=== PATIENT | female | born 1945 | race Caucasian/White ===

== ENCOUNTER 2019-12-07 00:38 | Outpatient (CLI) | payer MEDICARE, SELFPAY ==
[2019-12-07 16:40] LABS: SARS-CoV-2 RNA PCR Negative
== END 2019-12-07 00:39 | disposition home or self-care (01) ==
LOC: ANHCOVIDDT 00:38
PROVIDERS: PCP Internal Medicine; Visit Provider Podiatrist Foot & Ankle Surgery
DX: Z01.812 Encounter for preprocedural laboratory examination (principal); Z20.828 Contact with and (suspected) exposure to other viral communicable diseases
CPT/HCPCS: 87635; C9803; U0003

== ENCOUNTER 2019-12-07 08:59 | Outpatient (CLI) | payer MEDICARE, SELFPAY ==
--- NOTE | 2019-12-07 09:13 | ECG_ITS ---
Measurements Intervals Busy Rate: 53 P: 54 IA: 137 QRS: 22 QRSD: 86 T: 6 QT: 416 QTc: 392 Interpretive Statements SINUS BRADYCARDIA BORDERLINE ST-T WAVE ABNORMALITY- ANT/INF LEADS BORDERLINE ECG Electronically Signed On 12-07-2019 11:05:54 CDT by Harpreet Gaspar D.O.
== END 2019-12-07 09:00 | disposition home or self-care (01) ==
PROVIDERS: PCP Internal Medicine; Visit Provider Anesthesiology
DX: R00.1 Bradycardia, unspecified (principal); E78.00 Pure hypercholesterolemia, unspecified
CPT/HCPCS: 93005

== ENCOUNTER 2019-12-10 00:27 | Day surgery (SDC) | payer MEDICARE, SELFPAY ==
[2019-12-04 13:42] VITALS: BMI 20.5
[2019-12-10 11:51] VITALS: BP 147/67; PULSE 60; RESP 20; TEMP 36.6; O2SAT 100
[2019-12-10] MEDS: LACTATED RINGERS 1,000 ML 30 ML IV CONT (12:00)
--- NOTE | 2019-12-10 12:44 | P.PNAN_ITS ---
Anes - Initial Pre Proc Eval Procedure: Operation Date: 12/10/19 13:30 Proposed Procedures p Roberto Bunionectomy Right Foot - Hernan Bello DPM Date/Time: 12/10/19 12:44 Surgeon: Hernan Bello DPM Pre Op Diagnosis: HALLUX VALGUS RIGHT FOOT Patient Data Age: 74 Gender: F Height: 5 ft 2.5 in Weight: 51.5 kg Last Vital Signs Temp 36.6 C 12/10/19 11:51 Pulse 60 12/10/19 11:51 Resp 20 12/10/19 11:51 BP 147/67 H 12/10/19 11:51 Pulse Ox 100 12/10/19 11:51 Allergies Allergy/AdvReac Type Severity Reaction Status Date / Time No Known Allergies Allergy Verified 12/10/19 11:48 Home Medications Medication Instructions Recorded Confirmed Type aspirin 81 mg PO DAILY 12/04/19 12/04/19 History cholecalciferol (vitamin D3) 100 mcg PO DAILY 12/04/19 12/04/19 History [Vitamin D3] levothyroxine 50 mcg PO DAILY 12/04/19 12/10/19 History rosuvastatin 10 mg PO QMWFSU 12/04/19 12/10/19 History silver sulfadiazine 1 applic TOPICAL BID 12/04/19 12/10/19 History Patient hx anesthesia problems: none Family hx anesthesia problems: none [facility] Past Medical History Medical History (Updated 12/10/19 @ 12:47 by Brennan Spangler MD) Hyperlipidemia MVP (mitral valve prolapse) Surgical History Surgical History (Updated 12/10/19 @ 12:48 by Brennan Spangler MD) H/O: hysterectomy History of shoulder surgery Social History Social History (Updated 12/10/19 @ 12:48 by Brennan Spangler MD) Smoking status: Never smoker Gender identity (if verbalized by the patient): Female Anes - Eval Final PreProcedure Day of Procedure 12/10/19 12:44 Patient weight: normal Heart: regular rate and rhythm Lungs: clear to auscultation Airway: Mallampati scale class II Neurological: alert and oriented Last oral intake: >/= 8 hours ASA classification: II Emergent: no Anesthetic plan: proceed Anesthesia type and monitoring: general GIVS and standard monitoring Informed Consent: The patient's anesthetic plan and its attendant risks and benefits were discussed with the patient/family/POA. Questions were solicited and answers provided to the satisfaction of the patient/family/POA.
--- NOTE | 2019-12-10 13:50 | WPDHPUPDATE1 ---
History and Physical Update Update Date/Time: 12/10/19 13:50 History and Physical has been reviewed, including an updated exam of the patient. There are NO changes in the patient's condition. Risks, benefits, and alternatives have been discussed and questions answered. Patient agrees to proceed with procedure.
[2019-12-10] MEDS: LIDOCAINE HCL 2% LOCAL INJ 20 ML VIAL INFILTRATE (14:18)
[2019-12-10 14:43] VITALS: BP 106/59; PULSE 64; RESP 14; O2SAT 97
[2019-12-10 15:13] VITALS: BP 119/58; PULSE 57; RESP 14
[2019-12-10 15:43] VITALS: BP 115/75; PULSE 52; RESP 14
--- NOTE | 2020-01-14 17:20 | OP_ITS ---
DATE OF PROCEDURE: 12/10/2019 SURGEON: Hernan Bello D.P.M. SHOE SPRAYER: None. PREOPERATIVE DIAGNOSIS: Hallux valgus, right foot. POSTOPERATIVE DIAGNOSIS: Hallux valgus, right foot. PROCEDURE: Roberto bunionectomy, right foot. ANESTHESIA: Monitored anesthesia care with 0.5% Sensorcaine and 2.0% Xylocaine plain. HEMOSTASIS: via pneumatic tourniquet, right ankle at 250 mmHg. DESCRIPTION OF PROCEDURE: The patient was brought to the operating room and placed in the supine position upon the surgical table, the aforementioned local anesthetic agents were given followed by sterile prep and wrap in usual fashion. After ascertaining adequate anesthesia had been obtained and when the pneumatic tourniquet inflated about the right ankle, a dorsi-linear incision centered over the first MTP just medial to the long extensor tendon approximately 6 cm in length was created. The incision was deepened in the same plane with careful attention paid towards bleeders, which were either clamped, bovied, or ligated as necessary. Next, a periosteal capsular incision paralleling the original skin incision was created and all periosteal capsular and collateral ligament tissues were freed from about the head of the first metatarsal, which revealed a hypertrophy medial eminence, which was resected flush utilizing an oscillating saw. Next, an Roberto bunionectomy was performed, which is a V-shaped osteotomy in the transverse plane with the apex distally. The capital fragment was then displaced distally, moved laterally and then re-impacted upon the first metatarsal, the shaft thus reducing the metatarsus primus adductus angle. The osteotomy site was stable, but it was further stabilized with a single 0.045-inch K-wire. In the remaining bony spicules were rasped free and the wound was flushed copious amounts of sterile saline. The periosteal capsular incision was closed with a continuous running suture of 3-0 Vicryl. The subcutaneous tissues were closed utilizing horizontal mattress fashion sutures of 4-0 Vicryl. The skin was closed with a continuous subcuticular suture of 5-0 Vicryl. The pneumatic tourniquet was then deflated about right ankle and normal capillary refill time and color returned to all digits of the right foot. The wounds were dressed with sterile Adaptic, sterile 4 x 4s, and sterile Jory in a compressive type fashion. The aforementioned procedures took place under sterile technique and at no time was a brake in our sterile field. The patient left the operating room with vital signs stable, vascular status intact, and in an apparent satisfactory postoperative condition. After a brief period of observation in the post-anesthesia room, the patient was discharged to home with the following instructions: 1. Limit activity to bathroom privileges only. 2. Keep the dressing clean, dry, and intact. 3. Resume regular home diet and home medications. Call Dr. Bello at [phone] or [phone] if any questions, problems, or emergencies arise whatsoever, and also to schedule followup examination as soon as possible. Lali I MT: Selena
== END 2019-12-10 16:00 | disposition home or self-care (01) ==
PROVIDERS: PCP Internal Medicine; Visit Provider Podiatrist Foot & Ankle Surgery
PROC: (CPT 28299; principal; 2019-12-10 13:30)
DX: M20.11 Hallux valgus (acquired), right foot (principal); E78.5 Hyperlipidemia, unspecified; I34.1 Nonrheumatic mitral (valve) prolapse; Z79.82 Long term (current) use of aspirin
CPT/HCPCS: 28296; 87635; 93005; C1713; C9803; J1100; J2250; J2405; J2704; J3010; J7120; U0003

== ENCOUNTER 2024-12-04 09:25 | Inpatient (IN) | payer MEDICARE, SELFPAY ==
[2024-12-04] VITALS (33 sets, daily range): BP systolic 131–184; BP diastolic 64–88; PULSE 52–66; RESP 16–20; TEMP 36.2–36.4; O2SAT 94–100; BMI 21.6
--- OUTSIDE RECORDS SUMMARY | 2024-12-04 09:33 | XMS_ITS | Referral Summary ---
Author Organization [facility] Address [address] [place] [address] Care Team Providers Care Clinical Research Physician Name Role Phone Elissa Edmonds Primary Care Provider [phone] Encounters Date Type Department Care Team Description 11/13/2024 9:30 AM CDT Office Visit [facility] Cardiology [address] [place] [address] Medical Office Building [address] [place] [address] Anthony Cochran MD Mitral valve disease (Primary Dx); Hyperlipidemia, unspecified hyperlipidemia type from Last 3 Months Allergies No known active allergies Medications aspirin 81 mg tablet daily. 9 Active ibuprofen (ADVIL,MOTRIN) 200 mg tab/cap PRN Activ e levothyroxine (SYNTHROID, LEVOTHROID) 50 mcg tablet daily. 0 Active psyllium husk 3.4 gram/5.4 gram powder Take by mouth. Active cholecalciferol (VITAMIN D-3) 2,000 unit tablet 1 daily Active tretinoin (RETIN-A) 0.05 % cream APPLY CREAM TOPICALLY AT BEDTIME TO FACE 3 9 Active nitroglycerin (NITROSTAT) 0.[address] 1 tablet (0.4 mg total) under the tongue every 5 (five) minutes as needed for chest pain May repeat dose q 5 min, up to 3 doses total 100 tablet 11 3 Active Premarin vaginal cream APPLY 1/2 GRAM THREE TIMES WEEKLY 4 Active cyanocobalamin, vitamin B-12, (VITAMIN B-12 ORAL) Take by mouth daily Active rosuvastatin (CRESTOR) 20 mg tablet Take 1 tablet (20 mg total) by mouth daily 90 tablet 3 Active estradioL (ESTRACE) 0.01 % (0.1 mg/gram) vaginal cream Insert into the vagina. 11/14/19 25 Discontinu ed(Therapy completed) ubidecarenone (COENZYME Q10 ORAL) Take by mouth daily 11/14/19 Discontinu ed(Therapy completed) Hospital, Clinic, or Other Facility Administered Medication Ordered Dose Route Frequency Start Date End Date Status perflutren protein-a (OPTISON) 3 mL in sodium chloride 0.9% 8 mL syringe 1 - 8 mL IV Once in imaging 11/02/2023 Active Active Problems Problem Noted Date Diagnosed Date Dizziness 04/09/2015 Pain of foot 12/03/2012 Cardiomyopathy 05/23/2012 Calf cramp 01/21/2011 Mitral valve disease 11/15/2010 Overview (10/13/2017): Description: Mitral Valve Disorder Hyperthyroidism 06/07/2010 Anemia 06/07/2010 Hypertension 06/07/2010 Hyperlipidemia 06/07/2010 Social History Tobacco Use Types Packs/Day Years Used Date Smoking Tobacco: Never Smokeless Tobacco: Never Tobacco Cessation:Counseling Given: Not Answered Comments Unknown Sex and Gender Information Value Date Recorded Sex Assigned at Not on file 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 Gender Identity Not on file Sexual Orientation Not on file Last Filed Vital Signs Vital Sign Reading Time Taken Comments Blood Pressure 136/76 11/13/2024 9:29 AM CDT Pulse 62 11/13/2024 9:29 AM CDT Temperature - - Respiratory Rate 20 11/03/2022 9:41 AM CDT Oxygen Saturation 98% 11/13/2024 9:29 AM CDT Inhaled Oxygen Concentration - - Weight 51.3 kg (113 lb) 11/13/2024 9:29 AM CDT Height 158.8 cm (5' 2.5) 11/13/2024 9:29 AM CDT Body Mass Index 20.34 11/13/2024 9:29 AM CDT Plan of Treatment Not on file Insurance [employer] MEDICARE GOLD AETNA MEDICARE GOLD MEDICARE [facility] MEDICARE GOLD Care Teams Clinical Research Physician Relationship Specialty Start Date End Date Elissa Edmonds PA [address] [place] [id number] PCP - General Physician Construction Secretary 11/02/23
--- OUTSIDE RECORDS SUMMARY | 2024-12-04 09:33 | XMS_ITS | Encounter Summary ---
Author Organization [facility] Address [address] [place] [address] Care Team Providers Care Appliance Repair Technician Name Role Phone Reece Rahman MD Primary Care Provider [phone] Encounter Details Date Type Department Care Team (Late st Contact Info) Description 12/02/2019 Lab Requisition [facility] DermPath Lab 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 Gender Identity Not on file Sexual Orientation Not on file documented as of this encounter Plan of Treatment Not on file documented as of this encounter Procedures Procedure Name Priority Date/Time Associated Diagnosis Comments DERMATOPATHOLOGY Routine 11/28/2019 12:0 0 AM CDT documented in this encounter Results * DERMATOPATHOLOGY (11/28/2019 12:00 AM CDT) Case Report Dermatopathology Report Case: [id number] Authorizing Provider: Jacki Pino DO Collected: 11/28/2019 12:00 AM Ordering Location: [facility] DermPath Lab Received: 12/02/2019 11:13 AM Pathologist: Hollie Chávez MD Specimen: Skin, right thigh 0 2:56 PM CDT DERMATOPATHOLOGY LABORATORY Final Diagnosis Specimen A. SKIN, right thigh: PROMINENT BASILAR PIGMENTATION CONSISTENT WITH SOLAR LENTIGO (L81.4) (see microscopic description) 0 2:56 PM CDT DERMATOPATHOLOGY LABORATORY at 1456 CDT Clinical History Inflamed lentigo r/o atypia 0 2:56 PM CDT DERMATOPATHOLOGY LABORATORY Gross Description Specimen A: Received is one formalin filled container labeled with the patient's name and designated right thigh. The specimen consists of a shave biopsy measuring 10x5x1 mm. Jar 0. 0 2:56 PM CDT DERMATOPATHOLOGY LABORATORY Microscopic Description Specimen A. SKIN, right thigh: Sections show prominent pigmentation of the basal layer without a prominent increase in melanocytes. Some of the basilar keratinocytes are slightly enlarged but uniform. The rete ridges are not elongated. The number of melanocytes, highlighted by MART-1/Melan-A immunohistochemical staining, is only mildly increased. In the dermis, there is basophilic degeneration of elastic fibers. 0 2:56 PM CDT DERMATOPATHOLOGY LABORATORY Disclaimer An external and internal positive and negative controls are appropriate for the histochemical, immunohistochemical and immunofluorescence stain(s) in this case (if any), except where stated explicitly. The performance characteristics of the stain(s) cited in this report were developed and its performance characteristic determined by the Dermatopathology Laboratory at [facility], directed by Dr. Sally Yee. These tests need not be, and therefore are not, approved by the [place] Food and Drug Administration. The tests are used for clinical purposes. Billing Codes Specimen Charges Stain Charges 22642 1 41101 1 0 2:56 PM CDT DERMATOPATHOLOGY LABORATORY Embedded Images 0 2:56 PM CDT DERMATOPATHOLOGY LABORATORY Pathology/Cytolog y TISSUE SPECIMEN FROM SKIN / Unknown 11/28/2019 12/02/2019 11:13 AM CDT Jacki Pino DO LAB - PATHOLOGY/CYTOLOGY ORDERABLES Final Result DERMATOPATHOLOGY LABORATORY [facility] - Department of Dermatology [employer] [facility]/[address] [phone] documented in this encounter Visit Diagnoses Not on filedocumented in this encounter Care Teams Appliance Repair Technician Relationship Specialty Start Date End Date Reece Rahman MD [address] [place] [address] PCP - General 12/02/19 documented as of this encounter
--- OUTSIDE RECORDS SUMMARY | 2024-12-04 09:33 | XMS_ITS | Encounter Summary ---
Author Organization 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 Gender Identity Not on file Sexual Orientation Not on file documented as of this encounter Plan of Treatment Not on file documented as of this encounter Procedures Procedure Name Priority Date/Time Associated Diagnosis Comments GLUCOSE VITALITY Routine 04/16/2019 7:45 AM CDT HEMOGLOBIN A1C Routine 04/16/2019 7:45 AM CDT LIPID PROFILE Routine 04/16/2019 7:45 AM CDT documented in this encounter Results * HEMOGLOBIN A1C (04/16/2019 7:45 AM CDT) Hemoglobin A1c 6.2 4.4 - 6.3 % 04/16/2019 10:04 AM CDT [facility] Estimated Average Glucose 131 mg/dL 04/16/2019 10:04 AM [facility] Comment: HbA1c Interpretation: Treatment target values recommended by ADA and other clinical organizations should be used to evaluate metabolic control in patients. Treatment Target Values: Normal : < 5.7% Pre-diabetes: 5.7-6.4% Diabetes: Equal to or greater than 6.5% Reference: [place] Diabetes Association Standards of Care in Diabetes -2014 In patients 70 years and older consider HbA1c target range of 7.0-7.5% Reference: Diabetes Mellitus in Older People: Position Statement on behalf of the International Association of Gerontology and Geriatrics (IAGG), the Diabetes Working Republican for Older People (EDWPOP), and the International Task Force of Experts in Diabetes. Reinaldo Tellez et al. J [place] Medical Directors Association. 2012 Test results diagnostic of diabetes should be repeated for confirmation. The Sebia Capillary 2 assay for the measurement of HbA1c is a National Glycohemoglobin Standardization Program (NGSP)certified method. Blood BLOOD SPECIMEN / Unknown Lab Venipuncture / Unknown 04/16/2019 7:45 AM CDT 04/16/2019 9:20 AM CDT us LAB - CHEMISTRY ORDERABLES Final Result Performing Organization Address City/State/[facility] Co de Phone Number [address] [phone] * (ABNORMAL) LIPID PROFILE (04/16/2019 7:45 AM CDT) [facility] Signature Cholesterol Total 280(H) <200 mg/dL 04/16/2019 9:56 AM [facility] HDL 111 >40 mg/dL 04/16/2019 9:56 AM [facility] Comment: ATP III Classification of HDL Cholesterol: <40 mg/dL: Considered a major risk factor. >60 mg/dL: Considered a negative risk factor. LDL Calculated 155(H) <100 mg/dL 04/16/2019 9:56 AM [facility] Comment: ATP III Classification of LDL Cholesterol: <100 mg/dL: Optimal 100 - 129 mg/dL: Near Optimal/Above Optimal 130 - 159 mg/dL: Borderline High 160 - 189 mg/dL: High >190 mg/dL: Very High Triglycerides 68 <150 mg/dL 04/16/2019 9:56 AM CDT [facility] Comment: ATP III Classification of Triglycerides: <150 mg/dL: Normal 150 - 199 mg/dL: Borderline High 200 - 400 mg/dL: High >500 mg/dL: Very High Blood BLOOD SPECIMEN / Unknown Lab Venipuncture / Unknown 04/16/2019 7:45 AM CDT 04/16/2019 9:19 AM CDT us LAB - CHEMISTRY ORDERABLES Final Result [address] [phone] * GLUCOSE VITALITY (04/16/2019 7:45 AM CDT) Glucose 93 70 - 115 mg/dL 04/16/2019 9:46 AM CDT [facility] Blood BLOOD SPECIMEN / Unknown Lab Venipuncture / Unknown 04/16/2019 7:45 AM CDT 04/16/2019 9:19 AM CDT us LAB - CHEMISTRY ORDERABLES Final Result [address] [phone] documented in this encounter Visit Diagnoses Not on filedocumented in this encounter Care Teams Circuit Board Drafter Relationship Specialty Start Date End Date Reece Rahman MD [address] [place] [id number] PCP - General 12/02/19 documented as of this encounter
--- OUTSIDE RECORDS SUMMARY | 2024-12-04 09:33 | XMS_ITS | Clinical Summary ---
Author Organization [facility] Address [address] [place] [address] Care Team Providers Care Condenser Tester Name Role Phone Reece Rahman MD Primary Care Provider [phone] Source Comments [facility],non-owned Affiliates and Associated Physician Practices is amultiple site organization consisting of ambulatory clinics and hospital sitesin [place], [place], [place] and [place]. This disclosure is being madepursuant to the Care Everywhere program and may not contain all information available regarding this patient. Last updated 18.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 Gender Identity Not on file Sexual Orientation Not on file Plan of Treatment Health Maintenance Due Date Last Done Comments BONE DENSITY TESTING 1945 HEPATITIS C SCREENING 03/04/1965 DTAP/TDAP/TD VACCINES (1 - Tdap) 1966 PNEUMOCOCCAL VACCINE 50+ (1 of 1 - PCV) 1997 ZOSTER VACCINE (1 of 2) 1997 Respiratory Syncytial Virus (RSV) Vaccine Pt: or over 60 yrs (1 - 1-dose 75+ series) 2022 COVID-19 VACCINE (3 - 2023-2 5 season) 2024 08/12/2020, 07/22/2020 DEPRESSION SCREENING 07/03/2024 MEDICARE AWV CALENDAR YEAR 2024 INFLUENZA VACCINE (Season Ended) 2025 HEPATITIS B VACCINE Aged Out No longe r eligible based on patient's age to complete this topic HIB VACCINE Aged Out No longer eligi ble based on patient's age to complete this topic HPV VACCINE Aged Out No longer eligi ble based on patient's age to complete this topic MENINGOCOCCAL (Group B) VACCINE SHARED DECISION-MAKING Aged Out No longer eligible based on patient's age to complete this topic MENINGOCOCCAL GROUPS A/C/Y/W VACCINE Aged Out No longer eligible b ased on patient's age to complete this topic Insurance T AETNA MEDICARE ADV Care Teams Condenser Tester Relationship Specialty Start Date End Date Reece Rahman MD [address] [place] [address] [place] [id number] PCP - General 12/02/19
--- OUTSIDE RECORDS SUMMARY | 2024-12-04 09:33 | XMS_ITS | Encounter Summary ---
Author Organization [facility] Address [address] [place] [address] Care Team Providers Care Drawer Fitter Name Role Phone Enio Patten MD, Stacia Greenwood Primary Care Provider Cherelle vailable Encounter Details Date Type Department Care Team (Latest Contact Info) Description 08/12/[address] 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
--- OUTSIDE RECORDS SUMMARY | 2024-12-04 09:33 | XMS_ITS | Encounter Summary ---
Author Organization [facility] Address [address] [facility] [place] [address] Care Team Providers Care Automotive Hardware Engineer Name Role Phone Reece Rahman MD Primary Care Provider [phone] Encounter Details Date Type Department Care Team (Late st Contact Info) Description 03/14/2024 Lab Requisition [facility] - DermPath Lab [address] [facility], [facility] [place] [address] Jacki Pino DO [address] [address] Social History Tobacco Use Types Packs/Day Years Used Date Smoking Tobacco: Never Assessed Comments Unknown Sex and Gender Information Value Date Recorded Sex Assigned at Not on file 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 Gender Identity Not on file Sexual Orientation Not on file documented as of this encounter Plan of Treatment Not on file documented as of this encounter Procedures Procedure Name Priority Date/Time Associated Diagnosis Comments DERMATOPATHOLOGY Routine 03/14/2024 10:1 6 AM CDT documented in this encounter Results * DERMATOPATHOLOGY (03/14/2024 10:16 AM CDT) Case Report Dermatopathology Report Case: [id number] Authorizing Provider: Jacki Pino DO Collected: 03/14/2024 10:16 AM Ordering Location: [facility] - Received: 03/15/2024 09:04 AM DermPath Lab Pathologist: Lizbet Egan MD Specimen: Skin, left anterior LE 8:17 AM CDT DERMATOPATHOLOGY LABORATORY Final Diagnosis Specimen A. SKIN, left anterior LE: HYPERPLASTIC (HYPERTROPHIC) ACTINIC KERATOSIS; EXTENDING TO THE BASE OF THE SPECIMEN (L57.0) (see microscopic description and comment) 8:17 AM CDT DERMATOPATHOLOGY LABORATORY at 0817 CDT Clinical History R/O NMSC 4 8:17 AM CDT DERMATOPATHOLOGY LABORATORY Gross Description Specimen A: Received is one formalin filled container labeled with the patient's name and designated left anterior LE. The specimen consists of a shave biopsy measuring 5x5x1 mm. Jar 0. 8:17 AM CDT DERMATOPATHOLOGY LABORATORY Microscopic Description Specimen A. SKIN, left anterior LE: There is hyperkeratosis alternating with parakeratosis. There is epidermal hyperplasia with disorderly maturation of keratinocytes with nuclear pleomorphism confined to the lower half of the epidermis. This process extends to the base of the specimen. COMMENT: A squamous cell carcinoma cannot be ruled out. 8:17 AM CDT DERMATOPATHOLOGY LABORATORY Disclaimer An external and internal positive and negative controls are appropriate for the histochemical, immunohistochemical and immunofluorescence stain(s) in this case (if any), except where stated explicitly. The performance characteristics of the stain(s) cited in this report were developed and its performance characteristic determined by the Dermatopathology Laboratory at [facility], directed by Dr. Sally Yee. These tests need not be, and therefore are not, approved by the [place] Food and Drug Administration. The tests are used for clinical purposes. Billing Codes Specimen Charges Stain Charges 59107 1 4 8:17 AM CDT DERMATOPATHOLOGY LABORATORY Embedded Images 4 8:17 AM CDT DERMATOPATHOLOGY LABORATORY Pathology/Cytolo gy TISSUE SPECIMEN FROM SKIN / Unknown 03/14/2024 10:16 AM CDT 03/15/2024 9:04 AM CDT us Jacki Pino DO LAB - PATHOLOGY/CYTOLOGY ORDERABLES Final Result DERMATOPATHOLOGY LABORATORY [facility] - Department of Dermatology [facility] Medicine [address] [place] [address], [address] [phone] documented in this encounter Visit Diagnoses Not on filedocumented in this encounter Care Teams Automotive Hardware Engineer Relationship Specialty Start Date End Date Reece Rahman MD [address] [place] [phone] PCP - General 12/02/19 documented as of this encounter
--- OUTSIDE RECORDS SUMMARY | 2024-12-04 09:33 | XMS_ITS | Encounter Summary ---
Author Organization [facility] Address [address] [facility] [place] [address] Care Team Providers Care Rough And Trueing Machine Operator Name Role Phone Reece Rahman MD Primary Care Provider [phone] Encounter Details Date Type Department Care Team (Late st Contact Info) Description 04/05/[address] 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 Received: 04/07/2023 09:39 AM Pathologist: Hollie Chávez MD Specimen: Skin, right shoulder 4:57 PM CDT DERMATOPATHOLOGY LABORATORY Final Diagnosis Specimen A. SKIN, right shoulder: DERMAL SCAR RESIDUAL BASAL CELL CARCINOMA NOT IDENTIFIED (L90.5) 3 4:57 PM CDT DERMATOPATHOLOGY LABORATORY at 1657 CDT Clinical History BCC Bx Proven 3 4:57 PM CDT DERMATOPATHOLOGY LABORATORY Gross Description Specimen A: Received is one formalin filled container labeled with the patient's name and designated right shoulder. The specimen consists of a non-oriented ellipse of skin measuring 16a06h7 mm. The epidermal surface is unremarkable. The margin is inked green. The 12 o'clock and 6 o'clock tips are submitted in cassette 1. The remainder of the ellipse is serially sectioned and submitted in cassette 2-3. Jar 0. 4:57 PM CDT DERMATOPATHOLOGY LABORATORY Microscopic Description Specimen A. SKIN, right shoulder: There are fibroblasts and collagen bundles oriented parallel to the skin surface. There are elongated blood vessels, some of which are oriented perpendicular to the skin surface. No basal cell carcinoma is identified. 4:57 PM CDT DERMATOPATHOLOGY LABORATORY Disclaimer An external and internal positive and negative controls are appropriate for the histochemical, immunohistochemical and immunofluorescence stain(s) in this case (if any), except where stated explicitly. The performance characteristics of the stain(s) cited in this report were developed and its performance characteristic determined by the Dermatopathology Laboratory at [facility], directed by Dr. Sally Yee. These tests need not be, and therefore are not, approved by the [place] Food and Drug Administration. The tests are used for clinical purposes. Billing Codes Specimen Charges Stain Charges 60853 1 4:57 PM CDT DERMATOPATHOLOGY LABORATORY Embedded Images 4:57 PM CDT DERMATOPATHOLOGY LABORATORY Pathology/Cytolo gy TISSUE SPECIMEN FROM SKIN / Unknown 04/05/2023 2:01 PM CDT 04/07/2023 9:39 AM CDT us Jacki Pino DO LAB - PATHOLOGY/CYTOLOGY ORDERABLES Final Result DERMATOPATHOLOGY LABORATORY [facility] - Department of Dermatology [address], [address] [phone] documented in this encounter Visit Diagnoses Not on filedocumented in this encounter Care Teams Rough And Trueing Machine Operator Relationship Specialty Start Date End Date Reece Rahman MD [address] [place] [phone] PCP - General 12/02/19 documented as of this encounter
--- OUTSIDE RECORDS SUMMARY | 2024-12-04 09:33 | XMS_ITS | Encounter Summary ---
Author Organization [facility] Address [address] [facility] [place] [address] Care Team Providers Care Regulatory Product Manager Name Role Phone Reece Rahman MD Primary Care Provider [phone] Encounter Details Date Type Department Care Team (Late st Contact Info) Description 01/30/2023 Lab Requisition 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 DermPath Lab Received: 01/30/2023 04:16 PM Pathologist: Jessica Pace MD Specimen: Skin, right shoulder 3 5:44 PM CDT DERMATOPATHOLOGY LABORATORY Final Diagnosis Specimen A. SKIN, right shoulder: BASAL CELL CARCINOMA, SUPERFICIAL MULTIFOCAL (C44.612) 3 5:44 PM CDT DERMATOPATHOLOGY LABORATORY at 1744 CDT Clinical History NMSC 3 5:44 PM CDT DERMATOPATHOLOGY LABORATORY Gross Description Specimen A: Received is one formalin filled container labeled with the patient's name and designated right shoulder. The specimen consists of a shave biopsy measuring 7x6x1 mm. Jar 0. 3 5:44 PM CDT DERMATOPATHOLOGY LABORATORY Microscopic Description Specimen A. SKIN, right shoulder: Attached to the undersurface of the epidermis, there are small aggregates of basaloid cells with a high nuclear to cytoplasmic ratio and peripheral palisading. 3 5:44 PM CDT DERMATOPATHOLOGY LABORATORY Disclaimer An external and internal positive and negative controls are appropriate for the histochemical, immunohistochemical and immunofluorescence stain(s) in this case (if any), except where stated explicitly. The performance characteristics of the stain(s) cited in this report were developed and its performance characteristic determined by the Dermatopathology Laboratory at [facility], directed by Dr. Sally Yee. These tests need not be, and therefore are not, approved by the [place] Food and Drug Administration. The tests are used for clinical purposes. Billing Codes Specimen Charges Stain Charges 89685 1 3 5:44 PM CDT DERMATOPATHOLOGY LABORATORY Embedded Images 3 5:44 PM CDT DERMATOPATHOLOGY LABORATORY Pathology/Cytolo gy TISSUE SPECIMEN FROM SKIN / Unknown 01/30/2023 10:02 AM CDT 01/30/2023 4:16 PM CDT us Jacki Pino DO LAB - PATHOLOGY/CYTOLOGY ORDERABLES Final Result DERMATOPATHOLOGY LABORATORY [facility] - Department of Dermatology [address], [address] [phone] documented in this encounter Visit Diagnoses Not on filedocumented in this encounter Care Teams Regulatory Product Manager Relationship Specialty Start Date End Date Reece Rahman MD [address] [place] [id number] PCP - General 12/02/19 documented as of this encounter
--- OUTSIDE RECORDS SUMMARY | 2024-12-04 09:33 | XMS_ITS | Clinical Summary ---
Author Organization [facility] Address [address] [place] [address] Care Team Providers Care Road Worker Name Role Phone Elissa Edmonds Primary Care Provider [phone] Allergies No known active allergies Medications aspirin [...] total) by mouth daily 90 tablet 3 4 Active estradioL (ESTRACE) 0.01 % (0.1 mg/gram) vaginal cream Insert into the vagina. 11/14/19 25 Discontinu ed(Therapy completed) ubidecarenone (COENZYME Q10 ORAL) Take by mouth daily 11/14/19 25 Discontinu ed(Therapy completed) Hospital, Clinic, or Other [...] 06/07/2010 Anemia 06/07/2010 Hypertension 06/07/2010 Hyperlipidemia 06/07/2010 Encounters Date Type Department Care Team Description 11/13/2024 9:30 AM CDT Office Visit [facility] Cardiology [address] [place] [address] Medical Office Building [address] [place] [phone] Anthony Cochran MD Mitral valve disease (Primary Dx); Hyperlipidemia, unspecified hyperlipidemia type from Last 3 Months Family History Medical History Relation Name Comments Coronary artery disease Mother Fami ly history of coronary artery disease - (Added by TW Conv) Heart attack Son Family history of heart attack - (Added by TW Conv) Heart failure Son Family history of heart failure - (Added by TW Conv) Sudden Cardiac Son Family history of sudden cardiac - (Added by TW Conv) Relation Name Status Comments Mother Son Social History Tobacco Use Types Packs/Day Years Used Date Smoking Tobacco: Never Smokeless Tobacco: Never Tobacco Cessation:Counseling Given: Not Answered Comments Unknown Sex and Gender Information Value Date Recorded Sex Assigned at Not on file 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 Gender Identity Not on file Sexual Orientation Not on file Obstetrics History Last Filed Vital Signs Vital Sign Reading [...] 11/13/2024 9:29 AM CDT Plan of Treatment Health Maintenance Due Date Last Done Comments Depression Screening 1945 Fall Risk Assessment 1945 Hepatitis C Screening 1945 Osteoporosis Screening-Bone Density Scan 1945 DTaP/Tdap/Td Vaccine (1 - Tdap) 1958 Hepatitis B Screening 1965 Pneumococcal vaccine 65+ (1 of 1 - PCV) 1997 Zoster Vaccine (1 of 2) 1997 Well Visit 65+ 2012 Covid-19 Vaccine (3 - 2023-2 5 season) 2024 08/12/2020, 07/22/2020 Influenza Vaccine (Season Ended) 2025 07/07/19 13 Breast Cancer Screening-Mammogram Discontinued 03/01/2024, 06/03/2022, 04/30/2021, Additional history exists Insurance [facility] MEDICARE GOLD [facility] MEDICARE [facility] MEDICARE [facility] AETNA MEDICARE GOLD Care Teams Road Worker Relationship Specialty Start Date End Date Elissa Edmonds PA [address] [place] [id number] PCP - General Physician Dietitian Consultant 11/02/23
--- OUTSIDE RECORDS SUMMARY | 2024-12-04 09:33 | XMS_ITS | Clinical Summary ---
Author Organization [facility] Address [address] [place] [address] Phone Care Team Providers Care Blow Pit Operator Name Role Phone Enio Patten MD, Stacia rGeenwood Primary Care Provider Cherelle vailable Allergies No known active allergies Medications levothyroxine (SYNTHROID) 100 mcg Oral tablet Take 100 mcg by mouth daily. Active PSYLLIUM HUSK (METAMUCIL ORAL) Take by mouth. Active Active Problems Problem Noted Date Diagnosed Date TVH, SSC, repairs, a/p repai r, colpoperineorhaphy, perineoplasty 10/21/2011 Encounters Date Type Department Care Team Description 11/21/2024 External Device Data STL ABSTRACTION Provider, Abstract 11/20/2024 External Device Data STL ABSTRACTION Provider, Abstract 11/19/2024 External Device Data STL ABSTRACTION Provider, Abstract from Last 3 Months Family History Medical History Relation Name Comments Breast Cancer Neg Hx Ovarian Cancer Neg Hx Social History Tobacco Use Types Packs/Day Years Used Date Smoking Tobacco: Never Alcohol Use Standard Drinks/Week Comments Yes 0 (1 standard drink = 0.6 oz pur e alcohol) socially Comments Unknown Sex and Gender Information Value Date Recorded Sex Assigned at Not on file 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 Gender Identity Not on file Sexual Orientation Not on file Occupation Industry Job Start Date Job End Date Not on file Not on file Not on file Not on file Last Filed Vital Signs Vital Sign Reading Time Taken Comments Blood Pressure 100/68 10/22/2011 8:00 AM CDT Pulse 71 10/22/2011 8:00 AM CDT Temperature 36.2 C (97.1 F) 10/22/2011 3:45 PM CDT Respiratory Rate 16 10/22/2011 8:00 AM CDT Oxygen Saturation 95% 10/22/2011 8:00 AM CDT Inhaled Oxygen Concentration - - Weight 50.8 kg (112 lb) 10/21/2011 11:30 AM CDT Height 158.1 cm (5' 2.25) 10/12/2011 11:00 AM C DT Body Mass Index 20.32 10/12/2011 11:00 AM CDT Plan of Treatment Health Maintenance Due Date Last Done Comments DTAP/TDAP/TD VACCINES (1 - Tdap) 1966 PNEUMOCOCCAL VACCINE 50+ YEA RS (1 of 1 - PCV) 1997 ZOSTER VACCINE (1 of 2) 1997 OSTEOPOROSIS SCREENING 2012 RSV VACCINE (60+ or ) (1 - 1-dose 75+ series) 2022 INFLUENZA VACCINE (#1) 2024 COVID-19 Vaccine ( season) 03/03/202404/2021, 07/22/2020 Medical Devices Implanted Type Area Technical Solution Architect Device Identifier Shelf Expiration Date Model / Serial / Lot Log [id number] - Bladder Slings And Tapes - 1 - Sling Desara System [id number] Implanted:Qty: 1 on 10/21/2011 at [facility] Sling N/A: Vagina [employer] 03/02/2014 [id number] / / [id number] Description:VAGINAL APEX ARE A INSERTED Insurance AETNA O MCR Advance Directives For more information, please contact: [phone] * Full Code (Latest Code Status on File) Date Activated Date Inactivated Comments 10/21/2011 8:50 PM 10/22/2011 6:13 PM * Full Code Date Activated Date Inactivated Comments 10/21/2011 2:36 PM 10/21/2011 8:50 PM * Full Code Date Activated Date Inactivated Comments 10/21/2011 11:02 AM 10/21/2011 2:36 PM Care Teams Blow Pit Operator Relationship Specialty Start Date End Date Stacia Steen Jr., MD NO ADDRESS ON FILE PCP - General 08/12/04
--- OUTSIDE RECORDS SUMMARY | 2024-12-04 10:19 | XMS_ITS | Encounter Summary ---
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 Treatment Target Values: Normal : < 5.7% Pre-diabetes: 5.7-6.4% Diabetes: Equal to or greater than 6.5% Reference: [place] [employer] Standards of Care in Diabetes -2014 In patients 70 years and older consider HbA1c target range of 7.0-7.5% Reference: Diabetes Mellitus in Older People: Position Statement on behalf of the International Association of Gerontology and Geriatrics (IAGG), the Diabetes Working Libertarian for Older People (EDWPOP), and the International Task Force of Experts in Diabetes. Reinaldo Tellez et al. J [place] [employer] Association. 2012 Test results diagnostic of diabetes should be repeated for confirmation. The Sebia Capillary 2 assay for the measurement of HbA1c is a National Glycohemoglobin Standardization Program (NGSP)certified method. Blood BLOOD SPECIMEN / Unknown Lab Venipuncture / Unknown 04/16/2019 7:45 AM CDT 04/16/2019 9:20 AM CDT us LAB - CHEMISTRY ORDERABLES Final Result Performing Organization Address City/State/[facility] Co de Phone Number [address] [phone] * (ABNORMAL) LIPID PROFILE (04/16/2019 7:45 AM CDT) [facility] Signature Cholesterol Total 280(H) <200 mg/dL 04/16/2019 9:56 AM [facility] HDL 111 >40 mg/dL 04/16/2019 9:56 AM [facility] Comment: ATP III Classification of HDL Cholesterol: <40 mg/dL: Considered a major risk factor. >60 mg/dL: Considered a negative risk factor. LDL Calculated 155(H) <100 mg/dL 04/16/2019 9:56 AM [facility] Comment: ATP III Classification of LDL Cholesterol: <100 mg/dL: Optimal 100 - 129 mg/dL: Near Optimal/Above Optimal 130 - 159 mg/dL: Borderline High 160 - 189 mg/dL: High >190 mg/dL: Very High Triglycerides 68 <150 mg/dL 04/16/2019 9:56 AM CDT [facility] Comment: ATP III Classification of Triglycerides: <150 mg/dL: Normal 150 - 199 mg/dL: Borderline High 200 - 400 mg/dL: High >500 mg/dL: Very High Blood BLOOD SPECIMEN / Unknown Lab Venipuncture / Unknown 04/16/2019 7:45 AM CDT 04/16/2019 9:19 AM CDT us LAB - CHEMISTRY ORDERABLES Final Result [address] [phone] * GLUCOSE VITALITY (04/16/2019 7:45 AM CDT) Glucose 93 70 - 115 mg/dL 04/16/2019 9:46 AM CDT [facility] Blood BLOOD SPECIMEN / Unknown Lab Venipuncture / Unknown 04/16/2019 7:45 AM CDT 04/16/2019 9:19 AM CDT us LAB - CHEMISTRY ORDERABLES Final Result [address] [phone] documented in this encounter Visit Diagnoses Not on filedocumented in this encounter Care Teams Judge'S Clerk Relationship Specialty Start Date End Date Reece Rahman MD [address] [place] [id number] PCP - General 12/02/19 documented as of this encounter
--- OUTSIDE RECORDS SUMMARY | 2024-12-04 10:19 | XMS_ITS | Clinical Summary ---
Author Organization [facility] Address [address] [place] [address] Care Team Providers Care Human Resources Benefits Coordinator Name Role Phone Reece Rahman MD Primary Care Provider [phone] Source Comments [facility],non-owned Affiliates and Associated Physician Practices is amultiple site organization consisting of ambulatory clinics and hospital sitesin [place], [place], [place] and [place]. This disclosure is being madepursuant to the Care Everywhere program and may not contain all information available regarding this patient. 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
--- OUTSIDE RECORDS SUMMARY | 2024-12-04 10:19 | XMS_ITS | Encounter Summary ---
Author Organization [facility] Address [address] [facility] [place] [address] Care Team Providers Care Cigar Tobacco Processing Supervisor Name Role Phone Reece Rahman MD Primary Care Provider [phone] Encounter Details Date Type Department Care Team (Late st Contact Info) Description 01/30/2023 Lab Requisition [facility] - DermPath Lab [address] [facility] [place] [address] Jacki Pino DO [address] [place] [address] Social History Tobacco Use Types Packs/Day Years Used Date Smoking Tobacco: Never Assessed Comments Unknown Sex and Gender Information Value Date Recorded Sex Assigned at Not on file Legal 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 Female 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 Gender Identity Not on file Sexual Orientation Not on file documented as of this encounter Plan of Treatment Not on file documented as of this encounter Procedures Procedure Name Priority Date/Time Associated Diagnosis Comments DERMATOPATHOLOGY Routine 01/30/2023 10:0 2 AM CDT documented in this encounter Results * DERMATOPATHOLOGY (01/30/2023 10:02 AM CDT) Case Report Dermatopathology Report Case: [id number] Authorizing Provider: Jacki Pino DO Collected: 01/30/2023 10:02 AM Ordering Location: [facility] Received: 01/30/2023 04:16 PM Pathologist: [...] characteristic determined by the Dermatopathology Laboratory at [facility], directed by Dr. Sally Yee. These tests need not be, and therefore are not, approved by the [place] Food and Drug Administration. The tests are used for clinical purposes. Billing Codes Specimen Charges Stain Charges 78910 1 3 5:44 PM CDT DERMATOPATHOLOGY LABORATORY Embedded Images 3 5:44 PM CDT DERMATOPATHOLOGY LABORATORY Pathology/Cytolo gy TISSUE SPECIMEN FROM SKIN / Unknown 01/30/2023 10:02 AM CDT 01/30/2023 4:16 PM CDT us Jacki Pino DO LAB - PATHOLOGY/CYTOLOGY ORDERABLES Final Result DERMATOPATHOLOGY LABORATORY [facility] - Department of Dermatology [address], [address] [phone] documented in this encounter Visit Diagnoses Not on filedocumented in this encounter Care Teams Cigar Tobacco Processing Supervisor Relationship Specialty Start Date End Date Reece Rahman MD [address] [place] [phone] PCP - General 12/02/19 documented as of this encounter
--- OUTSIDE RECORDS SUMMARY | 2024-12-04 10:19 | XMS_ITS | Encounter Summary ---
Author Organization [facility] Address [address] [facility] [place] [address] Care Team Providers Care Hog Tender Name Role Phone Reece Rahman MD Primary Care Provider [phone] Encounter Details Date Type Department Care Team (Late st Contact Info) Description 12/02/[address] 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 DermPath Lab Received: 12/02/2019 11:13 AM [...] characteristic determined by the Dermatopathology Laboratory at [facility], directed by Dr. Sally Yee. These tests need not be, and therefore are not, approved by the [place] Food and Drug Administration. The tests are used for clinical purposes. Billing Codes Specimen Charges Stain Charges 20921 1 82825 1 0 2:56 PM CDT DERMATOPATHOLOGY LABORATORY Embedded Images 0 2:56 PM CDT DERMATOPATHOLOGY LABORATORY Pathology/Cytolog y TISSUE SPECIMEN FROM SKIN / Unknown 11/28/2019 12/02/2019 11:13 AM CDT Jacki Pino DO LAB - PATHOLOGY/CYTOLOGY ORDERABLES Final Result DERMATOPATHOLOGY LABORATORY [facility] - Department of Dermatology Design Maintenance Engineer Center/[address] [phone] documented in this encounter Visit Diagnoses Not on filedocumented in this encounter Care Teams Hog Tender Relationship Specialty Start Date End Date Reece Rahman MD [address] [place] [phone] PCP - General 12/02/19 documented as of this encounter
--- OUTSIDE RECORDS SUMMARY | 2024-12-04 10:19 | XMS_ITS | Referral Summary ---
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
--- OUTSIDE RECORDS SUMMARY | 2024-12-04 10:19 | XMS_ITS | Encounter Summary ---
Author Organization [facility] Address [address] [facility] [place] [address] Care Team Providers Care Care Partner Name Role Phone Reece Rahman MD Primary Care Provider Encounter Details Date Type Department Care Team (Late st Contact Info) Description 03/14/2024 Lab Requisition [facility] - DermPath Lab [address] [facility] [place] [place], [facility] [place] [address] Jacki Pino DO [address] [place] [address] Social History Tobacco Use Types Packs/Day Years Used Date Smoking Tobacco: Never Assessed Comments Unknown Sex and Gender Information Value Date Recorded Sex Assigned at Not on file 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 Gender Identity Not on file Sexual Orientation Not on file documented as of this encounter Plan of Treatment Not on file documented as of this encounter Procedures Procedure Name Priority Date/Time Associated Diagnosis Comments DERMATOPATHOLOGY Routine 03/14/2024 10:1 6 AM CDT documented in this encounter Results * DERMATOPATHOLOGY (03/14/2024 10:16 AM CDT) Case Report Dermatopathology Report Case: [id number] Authorizing Provider: Jacki Pino DO Collected: 03/14/2024 10:16 AM Ordering Location: [facility] - Received: 03/15/2024 09:04 AM [...] characteristic determined by the Dermatopathology Laboratory at [facility], directed by Dr. Sally Yee. These tests need not be, and therefore are not, approved by the [place] Food and Drug Administration. The tests are used for clinical purposes. Billing Codes Specimen Charges Stain Charges 26027 1 4 8:17 AM CDT DERMATOPATHOLOGY LABORATORY Embedded Images 4 8:17 AM CDT DERMATOPATHOLOGY LABORATORY Pathology/Cytolo gy TISSUE SPECIMEN FROM SKIN / Unknown 03/14/2024 10:16 AM CDT 03/15/2024 9:04 AM CDT us Jacki Pino DO LAB - PATHOLOGY/CYTOLOGY ORDERABLES Final Result DERMATOPATHOLOGY LABORATORY [facility] - Department of Dermatology [facility] Medicine [address] [place] [address], [address] [phone] documented in this encounter Visit Diagnoses Not on filedocumented in this encounter Care Teams Care Partner Relationship Specialty Start Date End Date Reece Rahman MD [address] [place] [phone] PCP - General 12/02/19 documented as of this encounter
--- OUTSIDE RECORDS SUMMARY | 2024-12-04 10:19 | XMS_ITS | Clinical Summary ---
Author Organization [facility] Address [address] [place] [address] Phone Care Team Providers Care Field Training Manager Name Role Phone Enio Patten MD, Stacia Greenwood Primary Care Provider Cherelle vailable Allergies No [...] on file Legal Sex Female 3:47 AM SHIFT BOSS Gender Identity Not on file Sexual Orientation [...] 03/03/202404/2021, 07/22/2020 Medical Devices Implanted Type Area Parts Person Device Identifier Shelf Expiration Date Model / Serial / Lot Log [id number] - Bladder Slings And Tapes - 1 - Sling Desara System [id number] Implanted:Qty: 1 on 10/21/2011 at [facility] Sling N/A: Vagina [employer] 03/02/2014 [id number] / / [id number] Description:VAGINAL APEX ARE A INSERTED Insurance AETNA O MCR Advance Directives For more information, please contact: [phone] * Full Code (Latest Code Status on File) Date Activated Date Inactivated Comments 10/21/2011 8:50 PM 10/22/2011 6:13 PM * Full Code Date Activated Date Inactivated Comments 10/21/2011 2:36 PM 10/21/2011 8:50 PM * Full Code Date Activated Date Inactivated Comments 10/21/2011 11:02 AM 10/21/2011 2:36 PM Care Teams Field Training Manager Relationship Specialty Start Date End Date Stacia Steen Jr., MD NO ADDRESS ON FILE PCP - General 08/12/04
--- OUTSIDE RECORDS SUMMARY | 2024-12-04 10:19 | XMS_ITS | Encounter Summary ---
Author Organization [facility] Address [address] [place] [address] Care Team Providers Care Electronics Mechanic Name Role Phone Enio Patten MD, Stacia Greenwood Primary Care Provider Cherelle vailable Encounter Details Date Type Department Care Team (Latest Contact Info) Description 08/12/2004 Outpatient Historical HIS [facility] SANDI Steen Jr., Stacia Greenwood MD NO ADDRESS ON FILE SCREENING MAMM-MAILG NEOPL-OTHER (Primary Dx) Social History Tobacco Use Types Packs/Day Years Used Date Smoking Tobacco: Never Assessed Comments Unknown Sex and Gender Information Value Date Recorded Sex Assigned at Not on file 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
--- OUTSIDE RECORDS SUMMARY | 2024-12-04 10:19 | XMS_ITS | Encounter Summary ---
Author Organization [facility] Address [address] [facility] [place] [address] Care Team Providers Care Digital Photo Printer Name Role Phone Reece Rahman MD Primary Care Provider [phone] Encounter Details Date Type Department Care Team (Late st Contact Info) Description 04/05/2023 Lab Requisition [facility] - DermPath Lab [address] [facility], [place] [address] Jacki Pino DO [address] [place] [address] Social History Tobacco Use Types Packs/Day Years Used Date Smoking Tobacco: Never Assessed Comments Unknown Sex and Gender Information Value Date Recorded Sex Assigned at Not on file 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..] of a non-oriented ellipse of skin measuring [id number] mm. The epidermal surface is unremarkable. The [...] characteristic determined by the Dermatopathology Laboratory at [facility], directed by Dr. Sally Yee. These tests need not be, and therefore are not, approved by the [place] Food and Drug Administration. The tests are used for clinical purposes. Billing Codes Specimen Charges Stain Charges 93812 1 4:57 PM CDT DERMATOPATHOLOGY LABORATORY Embedded Images 4:57 PM CDT DERMATOPATHOLOGY LABORATORY Pathology/Cytolo gy TISSUE SPECIMEN FROM SKIN / Unknown 04/05/2023 2:01 PM CDT 04/07/2023 9:39 AM CDT us Jacki Pino DO LAB - PATHOLOGY/CYTOLOGY ORDERABLES Final Result DERMATOPATHOLOGY LABORATORY [facility] - Department of Dermatology [address], [address] [phone] documented in this encounter Visit Diagnoses Not on filedocumented in this encounter Care Teams Digital Photo Printer Relationship Specialty Start Date End Date Reece Rahman MD [address] [place] [phone] PCP - General 12/02/19 documented as of this encounter
--- OUTSIDE RECORDS SUMMARY | 2024-12-04 10:19 | XMS_ITS | Clinical Summary ---
Author Organization [facility] Address [address] [place] [address] Care Team Providers Care Automotive Electrical Fitter Name Role Phone Elissa Edmonds Primary Care Provider [phone] Allergies No known active allergies Medications aspirin [...] Description 11/13/2024 9:30 AM CDT Office Visit [facility] Cardiology [address] [place] [address] Medical Office Building [address] [place] [phone] Anthony Cochran MD Mitral valve disease (Primary [...] on file Legal Sex Female 8:56 PM MEDICAL SERVICES COORDINATOR Gender Identity Not on file Sexual Orientation [...] 03/01/2024, 06/03/2022, 04/30/2021, Additional history exists Insurance [facility] [employer] MEDICARE GOLD [facility] MEDICARE [facility] MEDICARE [facility] AETNA MEDICARE GOLD Care Teams Automotive Electrical Fitter Relationship Specialty Start Date End Date Elissa Edmonds PA [address] [place] [id number] PCP - General Physician Drum Builder 11/02/23
--- NOTE | 2024-12-04 10:28 | PC.NURSE ---
attempted to draw blood work and cultures on patient. unable to obtain, GERMÁN ty.
[2024-12-04 10:50] LABS: Basophils Percent Auto 0.3 % (0.2-1.2); Eosinophils Percent Auto 0.5 % (0-4.4); Hemoglobin 11.4 g/dL (12.0-15.0); Immature Granulocyte Absolute 0.01 K/mm3 (0.00-0.031); Immature Granulocyte Percent A 0.2 % (0-0.5); Lymphocytes Absolute Auto 1.68 K/mm3 (0.9-3.2); Lymphocytes Percent Auto 28.1 % (18.3-44.2); Mean Corpuscular HGB Conc 31.7 g/dl (32-36); Mean Corpuscular Hemoglobin 29.6 pg (26-34); Mean Corpuscular Volume 93.5 fl (80-100); Mean Platelet Volume 10.8 fl (7.4-10.4); Monocytes Absolute Auto 0.5 K/mm3 (0.1-0.6); Neutrophils Absolute Auto 3.8 K/mm3 (1.3-6.7); Neutrophils Percent Auto 62.9 % (45.5-73.1); Platelet Count Result 225 k/mm3 (150-375); Red Blood Count 3.85 M/mm3 (4.2-5.4); Red Cell Distribution Width 13.2 % (11.5-14.5)
[2024-12-04 11:07] LABS: Lactic Acid Reflex 0.6 mmol/L (0.7-2.0)
[2024-12-04 11:08] LABS: Anion Gap 5 mmol/L (4-12); Blood Urea Nitrogen 11 mg/dL (7-17); Calcium 8.8 mg/dL (8.4-10.2); Carbon Dioxide 27 mmol/L (22-30); Chloride 107 mmol/L (98-107); Estimated CRCL calculation 44 ml/min; Estimated Glomerular Filt Rate > 60; Glucose 91 mg/dL (65-110); Potassium 3.9 mmol/L (3.4-5.0); Sodium 139 mmol/L (137-145)
[2024-12-04] MEDS: PIPERACILLN/TAZ 3.375GM/NS50ML 3.375 GM/50 ML BAG IVPB ×2 (11:08→17:21)
[2024-12-04] MEDS: VANCOMYCIN 1,250 MG/NS 250 ML 1,250 MG/250 ML BAG 166.67 MG IVPB (11:54)
[2024-12-04] MEDS: IBUPROFEN 600 MG TABLET PO (12:43)
--- NOTE | 2024-12-04 12:47 | ED_ITS ---
HPI - Extremity Injury (Upper) General Chief Complaint: Extremity Injury, Upper Stated Complaint: dog bite Time Seen by Provider: 12/04/24 09:30 History of Present Illness HPI narrative: On Monday patient was bitten by her dog to her left index finger she went to see her doctor on Monday and was started on antibiotics, but over the course of the last day has noticed it getting much worse, more swollen, and she is having difficulty moving the digit, so she came into the ER. Related Data Home Medications ?Medication ?Instructions ?Recorded ?Confirmed ?Last Taken ?Type aspirin 81 mg chewable tablet 81 mg PO DAILY 12/04/19 12/02/24 Unknown History cholecalciferol (vitamin D3) 100 100 mcg PO DAILY 12/04/19 12/02/24 Unknown History mcg (4,000 unit) capsule (Vitamin D3) levothyroxine 50 mcg tablet 50 mcg PO DAILY 12/04/19 12/02/24 12/10/19 06:00 History biotin 10 mg tablet 10 mg PO DAILY 07/13/22 12/02/24 Unknown History rosuvastatin 10 mg tablet 10 mg PO DAILY 07/19/23 12/02/24 Unknown History cyanocobalamin (vitamin B-12) 500 500 mcg sublingual DAILY 08/14/23 12/02/24 Unknown History mcg sublingual tablet Allergies Allergy/AdvReac Type Severity Reaction Status Date / Time No Known Allergies Allergy Verified 12/04/24 09:34 Review of Systems 2 Review of Systems: All systems reviewed & are unremarkable except as noted in HPI and below PMFSH Past Medical History Medical History Vitamin B12 deficiency Vitamin D deficiency URI (upper respiratory infection) Diverticulosis Hypothyroidism Dyslipidemia Hyperlipidemia MVP (mitral valve prolapse) Surgical History Surgical History H/O: hysterectomy History of shoulder surgery Social History Social History Smoking status: Never smoker Alcohol intake: current Drinks per week: 9 Substance use: never Substance use type: does not use Living arrangements: with family Occupation/Education: occupation Gender identity (if verbalized by the patient): Female Exam 2 Narrative: EXAMINATION OF ORGAN SYSTEMS/BODY AREAS: Constitutional: Vital signs per nursing GENERAL: Appears somewhat uncomfortable HEAD: Normal with no signs of head trauma. EYES: EOMI, conjunctiva normal ENT: Hearing grossly intact LUNGS: Nonlabored breathing. HEART: Good cap refill ABD: No distension EXT: Inability to flex left index finger, index finger is very swollen, medial index finger with area of redness and drainage SKIN: See above NEURO: [Alert and oriented x 3. No gross focal sensory or strength deficits.] PSYCH: Normal affect Course Vital Signs Vital signs: Vital Signs Temperature 97.1 F L 12/04/24 09:31 Pulse Rate 65 12/04/24 09:31 Respiratory Rate 16 12/04/24 09:31 Blood Pressure 184/80 H 12/04/24 09:31 Pulse Oximetry 99 12/04/24 09:31 Temperature 97.1 F L 12/04/24 09:31 Pulse Rate 66 12/04/24 12:44 Respiratory Rate 20 12/04/24 12:44 Blood Pressure 167/84 H 12/04/24 12:44 Pulse Oximetry 100 12/04/24 12:44 Procedures Abscess I/D hand: Date of Incision: 12/04/24 Time of Incision: 13:39 Side (if applicable): left and right Sedation/analgesia: other Amount of anesthesia used (mL): 3 Technique: incised with #11 blade Amount of fluid expressed (mL): 0 Irrigation: Yes Complications: bleeding Nerve Block Nerve Block 1: Nerve block date: 12/04/24 Nerve block time: 13:40 Amount of anesthesia used (mL): 3 Side: left Nerve Blocks: digital Procedure Successful: Yes Patient Tolerated Procedure: well and no complications MDM - Extremity Injury (Upper) MDM Narrative Medical decision making narrative: Patient presenting here after being bitten by her dog, failed outpatient antibiotics, with worsening swelling and tenderness of her finger. She does have a swollen digit with redness and some drainage, left index finger, I did consider possible tenosynovitis however she does not have severe pain nor with extension of finger, but I do feel she needs IV antibiotic and I did consult Hand surgery. Case discussed with Hand surgery on-call, who recommends digital block, incision over the area and soaks, agrees with admission for IV antibiotics. Patient agreeable to plan, discussed with hospitalist for admission. Lab Data 12/04/24 10:41 12/04/24 10:40 Labs: Lab Results 12/04/24 12/04/24 Range/Units 10:40 10:41 WBC 6.0 (4.5-10.0) K/mm3 RBC 3.85 L (4.2-5.4) M/mm3 Hgb 11.4 L (12.0-15.0) g/dL Hct 36.0 L (37.0-47.0) % MCV 93.5 (80-100) fl MCH 29.6 (26-34) pg MCHC 31.7 L (32-36) g/dl RDW 13.2 (11.5-14.5) % Plt Count 225 (150-375) k/mm3 MPV 10.8 H (7.4-10.4) fl Immature Gran % (Auto) 0.2 (0-0.5) % Neut % (Auto) 62.9 (45.5-73.1) % Lymph % (Auto) 28.1 (18.3-44.2) % [place] % (Auto) 8.0 (2.6-8.5) % Eos % (Auto) 0.5 (0-4.4) % Baso % (Auto) 0.3 (0.2-1.2) % Lymph # (Auto) 1.68 (0.9-3.2) K/mm3 [place] # (Auto) 0.5 (0.1-0.6) K/mm3 Eos # (Auto) 0.0 (0-0.3) K/mm3 Baso # (Auto) 0.0 (0.0-0.1) K/mm3 Abs Immat Gran (auto) 0.01 (0.00-0.031) K/mm3 Absolute Neuts (auto) 3.8 (1.3-6.7) K/mm3 Absolute Nucleated RBC 0.000 (0.0-0.012) K/mm3 Nucleated RBC % 0.0 (0.0-0.2) % Sodium 139 (137-145) mmol/L Potassium 3.9 (3.4-5.0) mmol/L Chloride 107 (98-107) mmol/L Carbon Dioxide 27 (22-30) mmol/L Anion Gap 5 (4-12) mmol/L BUN 11 (7-17) mg/dL Creatinine 0.71 (0.7-1.0) mg/dL Estim Creat Clear Calc 44 ml/min Estimated GFR > 60 (59 - ) Glucose 91 (65-110) mg/dL Lactic Acid 0.6 L (0.7-2.0) mmol/L Calcium 8.8 (8.4-10.2) mg/dL Discharge Plan Discharge Clinical Impression: Dog bite, Infected dog bite of finger Patient Disposition: Still a Patient Condition: Stable Patient Language: German Prescriptions: No Action biotin 10 mg tablet 10 mg PO DAILY coenzyme Q10 200 mg capsule 200 mg PO DAILY Qty: 1 0RF amoxicillin-pot clavulanate 875-125 mg tablet 1 tablet PO BID Qty: 20 0RF albuterol sulfate 90 mcg/actuation HFA aerosol inhaler 2 inh inhalation Q4H PRN (Reason: shortness of breath or wheezing) Qty: 8.5 0RF levothyroxine 50 mcg Tablet 50 mcg PO DAILY Vitamin D3 100 mcg (4,000 unit) Capsule 100 mcg PO DAILY aspirin 81 mg Tablet,Chewable 81 mg PO DAILY rosuvastatin 10 mg tablet 10 mg PO DAILY cyanocobalamin (vitamin B-12) 500 mcg tablet, sublingual 500 mcg sublingual DAILY Follow-up/Referrals: Elissa Edmonds PA-C [Primary Care Provider] -
--- NOTE | 2024-12-04 13:46 | PC.NURSE ---
Dr Gamez at bedside
--- NOTE | 2024-12-04 14:27 | WPDCN ---
Assessment and Plan Assessment and plan (1) Infected dog bite of finger: Qualifiers: Encounter type: initial encounter Qualified Code(s): S61.259A - Open bite of unspecified finger without damage to nail, initial encounter; L08.9 - Local infection of the skin and subcutaneous tissue, unspecified; W54.0XXA - Bitten by dog, initial encounter Code(s): S61.259A - Open bite of unspecified finger without damage to nail, initial encounter; L08.9 - Local infection of the skin and subcutaneous tissue, unspecified; W54.0XXA - Bitten by dog, initial encounter Status: Acute Assessment and Plan: 79yo female with left index finger dog bite cellulitis. xray images reviewed and agree with report I discussed impression and dx with patient noting no further surgical intervention was indiated at this time and hopeful resolution with medical mgmt and abx therapy. I idscussed fx healing and time course and treatment with immobilzation with patient as well noting risks of noncompliance such as arthritis, malunion, nonnunion Plan; 1) agree with ER plan to admit to medicine for broad spectrum IV abx. follow cultures and transition to oral per primary 2) BID soaks of finger in warm water with mixture of betadine and peroxide for 5-10 minutes 3) elevation 4) wound care with bacitracin, band-aid and finger splint 5) reconsult as indicated and patient has f/u appointment in plastics office this coming monday. HPI Data of Consult Date/Time: 12/04/24 14:27 Primary Care Provider: Elissa Edmonds PA-C Consult Narrative Narrative: Alicia Gonzales is a 79 year old female who sustained a bite to her left index finger~5 days ago from her dog. eval uation noted fx around base of p3 and she was started on augmentin 2 days after the incident. She presented to [facility] ER today noting interval worsening in index finger pain, redness and swelling and plastics consulted for further eval and mgmt. upon ER visit she underwent digital block and I&D of a bullae/superficial abscess on the ulnar side of her left index finger around dipj. minimal purulent fluid reported. FORMERLY [facility], [facility] Past Medical History Medical History Vitamin B12 deficiency Vitamin D deficiency URI (upper respiratory infection) Diverticulosis Hypothyroidism Dyslipidemia Hyperlipidemia MVP (mitral valve prolapse) Surgical History Surgical History H/O: hysterectomy History of shoulder surgery Social History Social History Smoking status: Never smoker Alcohol intake: current Drinks per week: 9 Substance use: never Substance use type: does not use Living arrangements: with family Occupation/Education: occupation Gender identity (if verbalized by the patient): Female Meds Home Medications and Allergies Home Medications ?Medication ?Instructions ?Recorded ?Confirmed ?Type aspirin 81 mg chewable tablet 81 mg PO DAILY 12/04/19 12/02/24 History cholecalciferol (vitamin D3) 100 100 mcg PO DAILY 12/04/19 12/02/24 History mcg (4,000 unit) capsule (Vitamin D3) levothyroxine 50 mcg tablet 50 mcg PO DAILY 12/04/19 12/02/24 History biotin 10 mg tablet 10 mg PO DAILY 07/13/22 12/02/24 History albuterol sulfate 90 mcg/actuation 2 inh inhalation Q4H PRN shortness 07/19/23 12/02/24 Rx aerosol inhaler of breath or wheezing #8.5 grams rosuvastatin 10 mg tablet 10 mg PO DAILY 07/19/23 12/02/24 History coenzyme Q10 200 mg capsule 200 mg PO DAILY #1 cap 07/27/23 12/02/24 Rx cyanocobalamin (vitamin B-12) 500 500 mcg sublingual DAILY 08/14/23 12/02/24 History mcg sublingual tablet amoxicillin 875 mg-potassium 1 tablet PO BID #20 tabs 12/02/24 12/02/24 Rx clavulanate 125 mg tablet Allergies Allergy/AdvReac Type Severity Reaction Status Date / Time No Known Allergies Allergy Verified 12/04/24 09:34 Vital Signs Vital Signs - 24 hr 12/04/24 09:31 12/04/24 11:13 12/04/24 12:44 Temperature 36.2 C L Pulse Rate 65 59 L 66 Respiratory Rate 16 19 20 Blood Pressure 184/80 H 156/69 H 167/84 H Pulse Oximetry 99 100 100 Exam Narrative: Gen: left index finger mild edema with erythema on ulnar aspect and small open wound ulnar side dipjoint. ROM: fds/fdp/edc intact but limited from pain. tender at fx site. no pain on passive stretch. no pain to palpation flexor sheath Vascular: Warm and well perfused Sensation: Intact to light touch Results Labs 12/04/24 10:41 12/04/24 10:40 Labs: Short CBC 12/04/24 Range/Units 10:41 WBC 6.0 (4.5-10.0) K/mm3 Hgb 11.4 L (12.0-15.0) g/dL Hct 36.0 L (37.0-47.0) % Plt Count 225 (150-375) k/mm3 [facility] 12/04/24 10:40 Sodium 139 Potassium 3.9 Chloride 107 Carbon Dioxide 27 BUN 11 Creatinine 0.71 Glucose 91 Calcium 8.8
--- OUTSIDE RECORDS SUMMARY | 2024-12-04 15:30 | XMS_ITS | Encounter Summary ---
Author Organization [facility] Address [address] [facility] [place] [address] Care Team Providers Care Toe Puncher Name Role Phone Reece Rahman MD Primary Care Provider [phone] Encounter Details Date Type Department Care Team (Late st Contact Info) Description 03/14/2024 Lab Requisition [facility] - Derm[facility] Lab [address] [facility] [place] [address] Jacki Pino DO [address] [place] [address] Social History Tobacco Use Types Packs/Day Years Used Date Smoking Tobacco: Never Assessed Comments Unknown Sex and Gender Information Value Date Recorded Sex Assigned at Not on file Legal 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 Female 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 Gender Identity Not on file Sexual Orientation Not on file documented as of this encounter Plan of Treatment Not on file documented as of this encounter Procedures Procedure Name Priority Date/Time Associated Diagnosis Comments DERMATOPATHOLOGY Routine 03/14/2024 10:1 6 AM CDT documented in this encounter Results * DERMATOPATHOLOGY (03/14/2024 10:16 AM CDT) Case Report Dermatopathology Report Case: [id number] Authorizing Provider: Jacki Pino DO Collected: 03/14/2024 10:16 AM Ordering Location: [facility] - Received: 03/15/2024 09:04 AM [...] characteristic determined by the Dermatopathology Laboratory at [facility], directed by Dr. Sally Yee. These tests need not be, and therefore are not, approved by the [place] Food and Drug Administration. The tests are used for clinical purposes. Billing Codes Specimen Charges Stain Charges 84832 1 4 8:17 AM CDT DERMATOPATHOLOGY LABORATORY Embedded Images 4 8:17 AM CDT DERMATOPATHOLOGY LABORATORY Pathology/Cytolo gy TISSUE SPECIMEN FROM SKIN / Unknown 03/14/2024 10:16 AM CDT 03/15/2024 9:04 AM CDT us Jacki Pino DO LAB - PATHOLOGY/CYTOLOGY ORDERABLES Final Result DERMATOPATHOLOGY LABORATORY [facility] - Department of Dermatology [facility] Medicine [address] [place] [address], [address] [phone] documented in this encounter Visit Diagnoses Not on filedocumented in this encounter Care Teams Toe Puncher Relationship Specialty Start Date End Date Reece Rahman MD [address] [place] [address] PCP - General 12/02/19 documented as of this encounter
--- OUTSIDE RECORDS SUMMARY | 2024-12-04 15:30 | XMS_ITS | Encounter Summary ---
Author Organization [facility] Address [address] [facility] [place] [address] Care Team Providers Care Appraiser Name Role Phone Reece Rahman MD Primary Care Provider [phone] Encounter Details Date Type Department Care Team (Late st Contact Info) Description 12/02/[address] [facility] [address] [facility], [place] [address] Jacki Pino DO [address] [place] [address] Social History Tobacco Use Types Packs/Day Years Used Date Smoking Tobacco: Never Assessed Comments Unknown Sex and Gender Information Value Date Recorded Sex Assigned at Not on file Legal Sex Female 6:00 PM DECK SPECIALIST Gender Identity Not on file Sexual Orientation Not on file documented as of this encounter Plan of Treatment Not on file documented as of this encounter Procedures Procedure Name Priority Date/Time Associated Diagnosis Comments DERMATOPATHOLOGY Routine 11/28/2019 12:0 0 AM CDT documented in this encounter Results * DERMATOPATHOLOGY (11/28/2019 12:00 AM CDT) Case Report Dermatopathology Report Case: [id number] Authorizing Provider: Jacki Pino DO Collected: 11/28/2019 12:00 AM Ordering Location: [facility] Received: 12/02/2019 11:13 AM Pathologist: [...] characteristic determined by the Dermatopathology Laboratory at [facility], directed by Dr. Sally Yee. These tests need not be, and therefore are not, approved by the [place] Food and Drug Administration. The tests are used for clinical purposes. Billing Codes Specimen Charges Stain Charges 21842 1 76320 1 0 2:56 PM CDT DERMATOPATHOLOGY LABORATORY Embedded Images 0 2:56 PM CDT DERMATOPATHOLOGY LABORATORY Pathology/Cytolog y TISSUE SPECIMEN FROM SKIN / Unknown 11/28/2019 12/02/2019 11:13 AM CDT Jacki Pino DO LAB - PATHOLOGY/CYTOLOGY ORDERABLES Final Result DERMATOPATHOLOGY LABORATORY [facility] - Department of Dermatology Clinical Trials Manager Center/[address] [phone] documented in this encounter Visit Diagnoses Not on filedocumented in this encounter Care Teams Appraiser Relationship Specialty Start Date End Date Reece Rahman MD [address] [place] [address] PCP - General 12/02/19 documented as of this encounter
--- OUTSIDE RECORDS SUMMARY | 2024-12-04 15:30 | XMS_ITS | Encounter Summary ---
Author Organization [facility] Address [address] [facility] [place] [address] Care Team Providers Care Commodity Lead Name Role Phone Reece Rahman MD Primary Care Provider [phone] Encounter Details Date Type Department Care Team (Late st Contact Info) Description 01/30/2023 Lab Requisition [facility] - Derm[facility] Lab [address] 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 Gender Identity Not on file Sexual Orientation Not on file documented as of this encounter Plan of Treatment Not on file documented as of this encounter Procedures Procedure Name Priority Date/Time Associated Diagnosis Comments DERMATOPATHOLOGY Routine 01/30/2023 10:0 2 AM CDT documented in this encounter Results * DERMATOPATHOLOGY (01/30/2023 10:02 AM CDT) Case Report Dermatopathology Report Case: [id number] Authorizing Provider: Jacki Pino DO Collected: 01/30/2023 10:02 AM Ordering Location: [facility] Received: 01/30/2023 04:16 PM Pathologist: [...] characteristic determined by the Dermatopathology Laboratory at [facility], directed by Dr. Sally Yee. These tests need not be, and therefore are not, approved by the [place] Food and Drug Administration. The tests are used for clinical purposes. Billing Codes Specimen Charges Stain Charges 06221 1 3 5:44 PM CDT DERMATOPATHOLOGY LABORATORY Embedded Images 3 5:44 PM CDT DERMATOPATHOLOGY LABORATORY Pathology/Cytolo gy TISSUE SPECIMEN FROM SKIN / Unknown 01/30/2023 10:02 AM CDT 01/30/2023 4:16 PM CDT us Jacki Pino DO LAB - PATHOLOGY/CYTOLOGY ORDERABLES Final Result DERMATOPATHOLOGY LABORATORY [facility] - Department of Dermatology [address], [address] [phone] documented in this encounter Visit Diagnoses Not on filedocumented in this encounter Care Teams Commodity Lead Relationship Specialty Start Date End Date Reece Rahman MD [address] [place] [address] PCP - General 12/02/19 documented as of this encounter
--- OUTSIDE RECORDS SUMMARY | 2024-12-04 15:30 | XMS_ITS | Clinical Summary ---
Author Organization [facility] Address [address] [facility] [place] [address] Care Team Providers Care Director Insurance Name Role Phone Reece Rahman MD Primary Care Provider [phone] Source Comments [facility],non-owned Affiliates and Associated Physician Practices is amultiple site organization consisting of ambulatory clinics and hospital sitesin [place], [place], [place] and [place]. This disclosure is being madepursuant to the Care Everywhere program and may not contain all information available regarding this patient. 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
--- OUTSIDE RECORDS SUMMARY | 2024-12-04 15:30 | XMS_ITS | Referral Summary ---
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
--- OUTSIDE RECORDS SUMMARY | 2024-12-04 15:30 | XMS_ITS | Clinical Summary ---
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
--- OUTSIDE RECORDS SUMMARY | 2024-12-04 15:30 | XMS_ITS | Encounter Summary ---
Author Organization [facility] Address [address] [facility] [place] [address] Care Team Providers Care Registration Coordinator Name Role Phone Reece Rahman MD Primary Care Provider [phone] Encounter Details Date Type Department Care Team (Late st Contact Info) Description 04/15/2019 Lab Requisition [facility] [address] [place] [phone] Social History Tobacco Use Types Packs/Day Years Used Date Smoking Tobacco: Never Assessed Comments Unknown Sex and Gender Information Value Date Recorded Sex Assigned at Not on file 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 Treatment Target Values: Normal : < 5.7% Pre-diabetes: 5.7-6.4% Diabetes: Equal to or greater than 6.5% Reference: [place] [employer] Standards of Care in Diabetes -2014 In patients 70 years and older consider HbA1c target range of 7.0-7.5% Reference: Diabetes Mellitus in Older People: Position Statement on behalf of the International Association of Gerontology and Geriatrics (IAGG), the Diabetes Working Green Party for Older People (EDWPOP), and the International Task Force of Experts in Diabetes. Reinaldo Tellez et al. J [place] [employer] Directors Association. 2012 Test results diagnostic of diabetes should be repeated for confirmation. The Sebia Capillary 2 assay for the measurement of HbA1c is a National Glycohemoglobin Standardization Program (NGSP)certified method. Blood BLOOD SPECIMEN / Unknown Lab Venipuncture / Unknown 04/16/2019 7:45 AM CDT 04/16/2019 9:20 AM CDT us LAB - CHEMISTRY ORDERABLES Final Result Performing Organization Address City/State/[facility] Co de Phone Number [address] [phone] * (ABNORMAL) LIPID PROFILE (04/16/2019 7:45 AM CDT) [facility] Signature Cholesterol Total 280(H) <200 mg/dL 04/16/2019 9:56 AM [facility] HDL 111 >40 mg/dL 04/16/2019 9:56 [...] us LAB - CHEMISTRY ORDERABLES Final Result [address] [phone] * GLUCOSE VITALITY (04/16/2019 7:45 AM CDT) Glucose 93 70 - 115 mg/dL 04/16/2019 9:46 AM CDT [facility] Blood BLOOD SPECIMEN / Unknown Lab Venipuncture / Unknown 04/16/2019 7:45 AM CDT 04/16/2019 9:19 AM CDT us LAB - CHEMISTRY ORDERABLES Final Result [address] [phone] documented in this encounter Visit Diagnoses Not on filedocumented in this encounter Care Teams Registration Coordinator Relationship Specialty Start Date End Date Reece Rahman MD [address] [place] [address] PCP - General 12/02/19 documented as of this encounter
--- OUTSIDE RECORDS SUMMARY | 2024-12-04 15:30 | XMS_ITS | Clinical Summary ---
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 Gender Identity Not on file Sexual Orientation [...] 03/03/202404/2021, 07/22/2020 Medical Devices Implanted Type Area Mosquito Sprayer Device Identifier Shelf Expiration Date Model / Serial / Lot Log [id number] - Bladder Slings And Tapes - 1 - Sling Desara System [id number] Implanted:Qty: 1 on 10/21/2011 at [facility] Sling N/A: Vagina [employer] 03/02/2014 [id number] / / [id number] Description:VAGINAL APEX ARE A INSERTED Insurance AETNA O MCR Advance Directives For more information, please contact: [phone] * Full Code (Latest Code Status on File) Date Activated Date Inactivated Comments 10/21/2011 8:50 PM 10/22/2011 6:13 PM * Full Code Date Activated Date Inactivated Comments 10/21/2011 2:36 PM 10/21/2011 8:50 PM * Full Code Date Activated Date Inactivated Comments 10/21/2011 11:02 AM 10/21/2011 2:36 PM Care Teams Qualified Craft Worker Electrician Relationship Specialty Start Date End Date Stacia Steen Jr., MD NO ADDRESS ON FILE PCP - General 08/12/04
--- OUTSIDE RECORDS SUMMARY | 2024-12-04 15:30 | XMS_ITS | Encounter Summary ---
Author Organization [facility] Address [address] [facility] [place] [address] Care Team Providers Care Certified Alcohol Drug Counselor Name Role Phone Reece Rahman MD Primary Care Provider [phone] Encounter Details Date Type Department Care Team (Late st Contact Info) Description 04/05/2023 Lab Requisition [facility] - Derm[facility] Lab [address] [facility] [place] [address] Jacki Pino DO [address] [place] [address] Social History Tobacco Use Types Packs/Day Years Used Date Smoking Tobacco: Never Assessed Comments Unknown Sex and Gender Information Value Date Recorded Sex Assigned at Not on file 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 Gender Identity Not on file Sexual Orientation Not on file documented as of this encounter Plan of Treatment Not on file documented as of this encounter Procedures Procedure Name Priority Date/Time Associated Diagnosis Comments DERMATOPATHOLOGY Routine 04/05/2023 2:01 PM CDT documented in this encounter Results * DERMATOPATHOLOGY (04/05/2023 2:01 PM CDT) Case Report Dermatopathology Report Case: [id number] Authorizing Provider: Jacki Pino DO Collected: 04/05/2023 02:01 PM Ordering Location: [facility] Received: 04/07/2023 09:39 AM Pathologist: [...] of a non-oriented ellipse of skin measuring 59e25d5 mm. The epidermal surface is unremarkable. The [...] characteristic determined by the Dermatopathology Laboratory at [facility], directed by Dr. Sally Yee. These tests need not be, and therefore are not, approved by the [place] Food and Drug Administration. The tests are used for clinical purposes. Billing Codes Specimen Charges Stain Charges 82468 1 4:57 PM CDT DERMATOPATHOLOGY LABORATORY Embedded Images 4:57 PM CDT DERMATOPATHOLOGY LABORATORY Pathology/Cytolo gy TISSUE SPECIMEN FROM SKIN / Unknown 04/05/2023 2:01 PM CDT 04/07/2023 9:39 AM CDT us Jacki Pino DO LAB - PATHOLOGY/CYTOLOGY ORDERABLES Final Result DERMATOPATHOLOGY LABORATORY [facility] - Department of Dermatology [address], [address] [phone] documented in this encounter Visit Diagnoses Not on filedocumented in this encounter Care Teams Certified Alcohol Drug Counselor Relationship Specialty Start Date End Date Reece Rahman MD [address] [place] [address] PCP - General 12/02/19 documented as of this encounter
--- OUTSIDE RECORDS SUMMARY | 2024-12-04 15:30 | XMS_ITS | Encounter Summary ---
Author Organization [facility] Address 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
--- NOTE | 2024-12-04 15:47 | P.HP_ITS ---
H&P: HPI History of Present Illness Date/Time: 12/04/24 15:47 Chief Complaint: Dog bite Narrative: 79-year-old female past medical history of diverticulosis, hypothyroidism, hypertension hyperlipidemia presents the hospital with a diet by after failing oral antibiotics. Patient states that she was bitten on Monday her left index finger. On Monday she presented to her primary care provider and was prescribed antibiotics and taking them as directed. However today is looking worse and more painful so she presented to the ER. In the ED patient had anemia of 11.4, BMP was within normal limits. Blood cultures are pending. X-ray of the finger showed Age-indeterminate avulsion fracture left second distal phalanx involving the DIP joint. And plastics was consulted. Review of Systems Review of Systems: 12 systems were reviewed and are negativ e except for as per HPI. [facility] Past Medical History Medical History Vitamin B12 deficiency Vitamin D deficiency URI (upper respiratory infection) Diverticulosis Hypothyroidism Dyslipidemia Hyperlipidemia MVP (mitral valve prolapse) Surgical History Surgical History H/O: hysterectomy History of shoulder surgery Family History Family History (Updated 12/04/24 @ 16:02 by Hollie Mcmullen RN) Mother Hypercholesteremia Son Hypercholesteremia Social History Social History Smoking status: Never smoker Alcohol intake: current Drinks per week: 5 Substance use: never Substance use type: does not use Do You Feel Safe in your Home?: Yes Lack of Transportation: No Lack of Food: Never True Current Housing: I Have Housing Concerned About Future Housing: No Difficulty Paying Gas/Electric Bills: No Difficulty Paying for Meds: No Currently Unemployed: No Education: Don't Know Difficulty w/ Childcare or Family Care: No Living arrangements: with family Occupation/Education: occupation Gender identity (if verbalized by the patient): Female Spiritual care concerns: No Meds Home Medications and Allergies Home Medications ?Medication ?Instructions ?Recorded ?Confirmed ?Type aspirin 81 mg chewable tablet 81 mg PO DAILY 12/04/19 12/04/24 History cholecalciferol (vitamin D3) 100 100 mcg PO DAILY 12/04/19 12/04/24 History mcg (4,000 unit) capsule (Vitamin D3) levothyroxine 50 mcg tablet 50 mcg PO DAILY 12/04/19 12/04/24 History biotin 10 mg tablet 10 mg PO DAILY 07/13/22 12/04/24 History rosuvastatin 10 mg tablet 20 mg PO DAILY 07/19/23 12/04/24 History cyanocobalamin (vitamin B-12) 500 500 mcg sublingual DAILY 08/14/23 12/04/24 History mcg sublingual tablet amoxicillin 875 mg-potassium 1 tablet PO BID #20 tabs 12/02/24 12/04/24 Rx clavulanate 125 mg tablet psyllium husk 3.4 gram/5.4 gram 1 tbsp PO DAILY 12/04/24 12/04/24 History oral powder (Metamucil) Allergies Allergy/AdvReac Type Severity Reaction Status Date / Time No Known Allergies Allergy Verified 12/04/24 16:14 Vital Signs Vital Signs - 24 hr 12/04/24 09:31 12/04/24 11:13 12/04/24 11:13 Temperature 97.1 F L Pulse Rate 65 59 L Respiratory Rate 16 19 Blood Pressure 184/80 H 156/69 H Pulse Oximetry 99 100 99 12/04/24 11:14 12/04/24 11:15 12/04/24 11:16 Temperature Pulse Rate Respiratory Rate Blood Pressure 156/69 H 153/71 H Pulse Oximetry 99 99 99 12/04/24 11:30 12/04/24 11:33 12/04/24 11:45 Temperature Pulse Rate Respiratory Rate Blood Pressure 149/66 H Pulse Oximetry 100 99 99 12/04/24 11:46 12/04/24 12:01 12/04/24 12:02 Temperature Pulse Rate Respiratory Rate Blood Pressure 157/71 H 166/68 H Pulse Oximetry 99 99 100 12/04/24 12:15 12/04/24 12:16 12/04/24 12:30 Temperature Pulse Rate Respiratory Rate Blood Pressure 146/88 H Pulse Oximetry 99 99 100 12/04/24 12:31 12/04/24 12:44 12/04/24 12:45 Temperature Pulse Rate 66 Respiratory Rate 20 Blood Pressure 167/84 H 167/84 H Pulse Oximetry 100 100 96 12/04/24 12:46 12/04/24 13:01 12/04/24 13:15 Temperature Pulse Rate Respiratory Rate Blood Pressure 179/71 H 165/70 H Pulse Oximetry 100 100 94 12/04/24 13:16 12/04/24 13:30 12/04/24 13:31 Temperature Pulse Rate Respiratory Rate Blood Pressure 163/75 H 161/80 H Pulse Oximetry 98 99 99 12/04/24 13:46 12/04/24 14:01 12/04/24 14:16 Temperature Pulse Rate Respiratory Rate Blood Pressure 166/80 H 159/84 H 131/79 Pulse Oximetry 12/04/24 14:31 12/04/24 14:46 12/04/24 15:01 Temperature Pulse Rate Respiratory Rate Blood Pressure 150/68 H 150/65 H 161/66 H Pulse Oximetry 12/04/24 15:16 Temperature Pulse Rate Respiratory Rate Blood Pressure 162/71 H Pulse Oximetry Exam Narrative: General: well appearing, appears stated age. HEENT: normocephalic, atraumatic. Mucous membranes moist. EOMI, PERRLA, bilateral sclera anicteric, no conjunctival injection. Neck supple without JVD, lymphadenopathy, or bruit. Respiratory: clear to ascultation bilaterally. No rales/rhonic/wheezes. Cardiovascular: Regular rate and rhythm, normal S1-S2 upon ascultation. No murmurs, rubs, or clicks. PMI is nondisplaced, capillary refill less than 3 second. Abdomen: Soft, round, no pulsatile masses, nondistended and nontender. No rebound, no guarding. No CVA tenderness, no hepatosplenomegaly. Bowel sounds present to all four quadrants. No high pitch or tinkling sounds, resonant to percussion. Extremities: No cyanosis, clubbing, or edema present. Pulses are palpable 2/2. Active ROM to all four extremities. Erythema to left 2nd digit. Neuro: Alert and orientated x 4. PERRLA. Cranial nerves 2-12 intact without focal deficit. Skin: Warm, dry, and intact, without rash, erythema, or lesion. Psych: pleasant, cooperative, normal speech, normal affect, no hallucinations, no dysarthia H&P: Results Labs Labs: Short CBC 12/04/24 Range/Units 10:41 WBC 6.0 (4.5-10.0) K/mm3 Hgb 11.4 L (12.0-15.0) g/dL Hct 36.0 L (37.0-47.0) % Plt Count 225 (150-375) k/mm3 [facility] 12/04/24 10:40 Sodium 139 Potassium 3.9 Chloride 107 Carbon Dioxide 27 BUN 11 Creatinine 0.71 Glucose 91 Calcium 8.8 Assessment and Plan Assessment and plan (1) Infected dog bite of finger: Qualifiers: Encounter type: initial encounter Qualified Code(s): S61.259A - Open bite of unspecified finger without damage to nail, initial encounter; L08.9 - Local infection of the skin and subcutaneous tissue, unspecified; W54.0XXA - Bitten by dog, initial encounter Code(s): S61.259A - Open bite of unspecified finger without damage to nail, initial encounter; L08.9 - Local infection of the skin and subcutaneous tissue, unspecified; W54.0XXA - Bitten by dog, initial encounter Status: Acute Assessment and Plan: Plastics consulted with recommendations for IV antibiotics, BID soaks of finger in warm water with mixture of betadine and peroxide for 5-10 minutes, bacitracin, band-aid and finger splint, and follow-up outpatient in office IV Zosyn and vancomycin (2) Avulsion fracture: Code(s): T14.8XXA - Other injury of unspecified body region, initial encounter Status: Acute Assessment and Plan: Fracture and open wound from dog bite Orthopedic consulted pending recommendations Splint (3) Hypothyroidism: Code(s): E03.9 - Hypothyroidism, unspecified Status: Acute Assessment and Plan: Continue home medication (4) Dyslipidemia: Code(s): E78.5 - Hyperlipidemia, unspecified Status: Acute Plan Continue home medication Hospitalist MIPS Advance Care Plan I have confirmed that the patient's Advanced Care Plan is present, code status is documented, or surrogate decision maker is listed in patient medical record.: Yes Medication Reconciliation I have utilized all available resources to obtain, update and review the patients current medications (includes all prescriptions, OTC, herbals, cannabis, and nutritional supplements).: Yes
--- NOTE | 2024-12-04 15:58 | ADMGEN ---
This patient, Alicia Gonzales, was admitted to 3 [facility] Surg Room 306-02. Patient/family oriented to hospital policies and general routines including ID bracelet, bed and alarms, visiting hours, pain management, procedures, bathroom and other care routines, personal items, smoking policy, room service/diet, and visiting hours. Information on how to activate the Rapid Response Team has been discussed. Patient/Family are encouraged to report perceived risks to care and to ask questions if they do not understand what they are told or what they should do. Report from Rhina in ER.
[2024-12-04] MEDS: HYDROGEN PEROXIDE 3% TOPICAL SOLUTION 118 ML BOTTLE IRRIGATION (17:23)
[2024-12-04] MEDS: POVIDONE-IODINE 10% SOLUTION 118 ML BOTTLE TOPICAL (17:23)
[2024-12-04] MEDS: ACETAMINOPHEN 325 MG TABLET 650 MG PO (20:06)
[2024-12-04] MEDS: BACITRACIN OINTMENT 15 GM TUBE 1 APPLIC TOPICAL (20:08)
[2024-12-05] MEDS: PIPERACILLN/TAZ 3.375GM/NS50ML 3.375 GM/50 ML BAG IVPB ×4 (00:26→17:17)
[2024-12-05] MEDS: HYDROcodone/acetaminophen (*CRX) 5-325 MG TABLET 1 TAB PO (02:26)
[2024-12-05 06:00] VITALS: BP 128/61; PULSE 56; RESP 20; TEMP 35.8; O2SAT 95
[2024-12-05] MEDS: LEVOTHYROXINE SODIUM 50 MCG TABLET PO (06:14)
[2024-12-05 06:39] LABS: Basophils Percent Auto 0.6 % (0.2-1.2); Eosinophils Absolute Auto 0.1 K/mm3 (0-0.3); Eosinophils Percent Auto 1.1 % (0-4.4); Hematocrit 36.2 % (37.0-47.0); Hemoglobin 11.2 g/dL (12.0-15.0); Immature Granulocyte Absolute 0.03 K/mm3 (0.00-0.031); Immature Granulocyte Percent A 0.6 % (0-0.5); Lymphocytes Absolute Auto 1.69 K/mm3 (0.9-3.2); Mean Corpuscular HGB Conc 30.9 g/dl (32-36); Mean Corpuscular Hemoglobin 29.6 pg (26-34); Mean Corpuscular Volume 95.5 fl (80-100); Mean Platelet Volume 11.1 fl (7.4-10.4); Monocytes Absolute Auto 0.4 K/mm3 (0.1-0.6); Monocytes Percent Auto 7.4 % (2.6-8.5); Neutrophils Absolute Auto 3.1 K/mm3 (1.3-6.7); Neutrophils Percent Auto 58.3 % (45.5-73.1); Platelet Count Result 211 k/mm3 (150-375); Red Blood Count 3.79 M/mm3 (4.2-5.4); Red Cell Distribution Width 13.1 % (11.5-14.5); White Blood Count 5.3 K/mm3 (4.5-10.0)
[2024-12-05 06:57] LABS: Anion Gap 4 mmol/L (4-12); Blood Urea Nitrogen 11 mg/dL (7-17); Calcium 8.5 mg/dL (8.4-10.2); Carbon Dioxide 28 mmol/L (22-30); Chloride 105 mmol/L (98-107); Estimated CRCL calculation 50 ml/min; Estimated Glomerular Filt Rate > 60; Glucose 77 mg/dL (65-110); Potassium 3.9 mmol/L (3.4-5.0); Sodium 137 mmol/L (137-145)
[2024-12-05] MEDS: HYDROGEN PEROXIDE 3% TOPICAL SOLUTION 118 ML BOTTLE IRRIGATION ×2 (08:50→16:04)
[2024-12-05] MEDS: DOCUSATE SODIUM 100 MG CAPSULE PO (08:50)
[2024-12-05] MEDS: ASPIRIN 81 MG CHEWABLE TABLET PO (08:50)
[2024-12-05] MEDS: ROSUVASTATIN 10 MG TABLET 20 MG PO (08:50)
[2024-12-05] MEDS: BACITRACIN OINTMENT 15 GM TUBE 1 APPLIC TOPICAL ×2 (08:50→21:58)
[2024-12-05] MEDS: POVIDONE-IODINE 10% SOLUTION 118 ML BOTTLE TOPICAL ×2 (08:50→16:04)
--- NOTE | 2024-12-05 09:33 | P.CDI_ITS ---
CDI Query Clarification Request Please clarify the depth of the incision and drainage as: * Skin * Subcutaneous * Fascia * Muscle * Other, please specify * Unknown/ undetermined The medical chart reflects the following: Procedures Abscess I/D hand: Date of Incision: 12/04/24 Time of Incision: 13:39 Side (if applicable): left and right Sedation/analgesia: other Amount of anesthesia used (mL): 3 Technique: incised with #11 blade Amount of fluid expressed (mL): 0 Irrigation: Yes Complications: bleeding <Justyna Mcgarry RN - Last Filed: 12/05/24 09:40> Depth: subq The medical chart reflects the following: Procedures Abscess I/D hand: Date of Incision: 12/04/24 Time of Incision: 13:39 Side (if applicable): left and right Sedation/analgesia: other Amount of anesthesia used (mL): 3 Technique: incised with #11 blade Amount of fluid expressed (mL): 0 Irrigation: Yes Complications: bleeding <Mariah Wise MD - Last Filed: 12/13/24 19:30>
--- NOTE | 2024-12-05 09:49 | P.PNIM_ITS ---
Progress Note: A&P Assessment and Plan (1) Infected dog bite of finger: Qualifiers: Encounter type: initial encounter Qualified Code(s): S61.259A - Open bite of unspecified finger without damage to nail, initial encounter; L08.9 - Local infection of the skin and subcutaneous tissue, unspecified; W54.0XXA - Bitten by dog, initial encounter Code(s): S61.259A - Open bite of unspecified finger without damage to nail, initial encounter; L08.9 - Local infection of the skin and subcutaneous tissue, unspecified; W54.0XXA - Bitten by dog, initial encounter Status: Acute Assessment and Plan: Plastics consulted with recommendations for IV antibiotics, BID soaks of finger in warm water with mixture of betadine and peroxide for 5-10 minutes, bacitracin, band-aid and finger splint, and follow-up outpatient in office IV Zosyn and vancomycin (2) Avulsion fracture: Code(s): T14.8XXA - Other injury of unspecified body region, initial encounter Status: Acute Assessment and Plan: Fracture and open wound from dog bite Orthopedic consulted pending recommendations Splint (3) Hypothyroidism: Code(s): E03.9 - Hypothyroidism, unspecified Status: Acute Assessment and Plan: Continue home medication (4) Dyslipidemia: Code(s): E78.5 - Hyperlipidemia, unspecified Status: Acute Plan Continue home medication Subjective Date/time seen: 12/05/24 09:49 Interval history: Consulted ortho for avulsion fracture left second distal phalanx. Review of Systems Review of Systems: Except as documented, all other systems were reviewed and are negative. Exam Narrative: General: well appearing, appears stated age. HEENT: normocephalic, atraumatic. Mucous membranes moist. EOMI, PERRLA, bilateral sclera anicteric, no conjunctival injection. Neck supple without JVD, lymphadenopathy, or bruit. Respiratory: clear to ascultation bilaterally. No rales/rhonic/wheezes. Cardiovascular: Regular rate and rhythm, normal S1-S2 upon ascultation. No murmurs, rubs, or clicks. PMI is nondisplaced, capillary refill less than 3 second. Abdomen: Soft, round, no pulsatile masses, nondistended and nontender. No rebound, no guarding. No CVA tenderness, no hepatosplenomegaly. Bowel sounds present to all four quadrants. No high pitch or tinkling sounds, resonant to percussion. Extremities: No cyanosis, clubbing, or edema present. Pulses are palpable 2/2. Active ROM to all four extremities. Erythema to left 2nd digit. Neuro: Alert and orientated x 4. PERRLA. Cranial nerves 2-12 intact without focal deficit. Skin: Warm, dry, and intact, without rash, erythema, or lesion. Psych: pleasant, cooperative, normal speech, normal affect, no hallucinations, no dysarthia Objective Data Vital Signs Vital Signs: Vital Signs - 24 hr 12/04/24 11:13 12/04/24 11:13 12/04/24 11:14 Temperature Pulse Rate 59 L Respiratory Rate 19 Blood Pressure 156/69 H 156/69 H Pulse Oximetry 100 99 99 Oxygen Delivery 12/04/24 11:15 12/04/24 11:16 12/04/24 11:30 Temperature Pulse Rate Respiratory Rate Blood Pressure 153/71 H Pulse Oximetry 99 99 100 Oxygen Delivery 12/04/24 11:33 12/04/24 11:45 12/04/24 11:46 Temperature Pulse Rate Respiratory Rate Blood Pressure 149/66 H 157/71 H Pulse Oximetry 99 99 99 Oxygen Delivery 12/04/24 12:01 12/04/24 12:02 12/04/24 12:15 Temperature Pulse Rate Respiratory Rate Blood Pressure 166/68 H Pulse Oximetry 99 100 99 Oxygen Delivery 12/04/24 12:16 12/04/24 12:30 12/04/24 12:31 Temperature Pulse Rate Respiratory Rate Blood Pressure 146/88 H 167/84 H Pulse Oximetry 99 100 100 Oxygen Delivery 12/04/24 12:44 12/04/24 12:45 12/04/24 12:46 Temperature Pulse Rate 66 Respiratory Rate 20 Blood Pressure 167/84 H 179/71 H Pulse Oximetry 100 96 100 Oxygen Delivery 12/04/24 13:01 12/04/24 13:15 12/04/24 13:16 Temperature Pulse Rate Respiratory Rate Blood Pressure 165/70 H 163/75 H Pulse Oximetry 100 94 98 Oxygen Delivery 12/04/24 13:30 12/04/24 13:31 12/04/24 13:46 Temperature Pulse Rate Respiratory Rate Blood Pressure 161/80 H 166/80 H Pulse Oximetry 99 99 Oxygen Delivery 12/04/24 14:01 12/04/24 14:16 12/04/24 14:31 Temperature Pulse Rate Respiratory Rate Blood Pressure 159/84 H 131/79 150/68 H Pulse Oximetry Oxygen Delivery 12/04/24 14:46 12/04/24 15:01 12/04/24 15:16 Temperature Pulse Rate Respiratory Rate Blood Pressure 150/65 H 161/66 H 162/71 H Pulse Oximetry Oxygen Delivery 12/04/24 16:15 12/04/24 17:51 12/04/24 20:00 Temperature 97.5 F L Pulse Rate 52 L 60 Respiratory Rate 16 20 Blood Pressure 163/71 H Pulse Oximetry 100 98 Oxygen Delivery Room Air Room Air 12/04/24 21:10 12/05/24 06:00 Temperature 97.2 F L 96.5 F L Pulse Rate 59 L 56 L Respiratory Rate 20 20 Blood Pressure 147/64 H 128/61 Pulse Oximetry 98 95 Oxygen Delivery Intake/Output Intake/Output: Intake & Output 12/02/24 12/03/24 12/04/24 12/05/24 23:59 23:59 23:59 23:59 Intake Total 470 50 Balance 470 50 Meds/Results Medications: Active Medications Generic Name Dose Route Start Last Admin Trade Name Freq PRN Reason Stop Dose Admin Acetaminophen 650 mg 12/04/24 15:54 12/04/24 20:06 Acetaminophen 325 Mg Tablet PO 650 mg Q4H PRN Administration Mild Pain (1-3) or Fever Hydrocodone Bitart/Acetaminophen 1 tab 12/04/24 15:54 12/05/24 02:26 Hydrocodone/Acetaminophen (*Crx) 5-325 Mg Tablet PO 1 tab Q4H PRN Administration Moderate Pain (4-6) Aspirin 81 mg 12/05/24 08:00 Aspirin 81 Mg Chewable Tablet PO DAILY@0800 [facility] Bacitracin 1 applic 12/04/24 21:00 12/04/24 20:08 Bacitracin Ointment 15 Gm Tube TOPICAL 1 applic Q12HR [facility] Administration Docusate Sodium 100 mg 12/04/24 17:00 12/04/24 16:20 Docusate Sodium 100 Mg Capsule PO Not Given BID [facility] Enoxaparin Sodium 40 mg 12/05/24 09:00 Enoxaparin 40 Mg/0.4 Ml Syringe SUB-Q DAILY [facility] Hydrogen Peroxide/Benzyl Alcohol 1 ml 12/04/24 17:00 12/04/24 17:23 Hydrogen Peroxide 3% Topical Solution 118 Ml Bottle IRRIGATION 1 ml BID [facility] Administration Vancomycin HCl 750 mg in 250 mls @ 250 mls/hr 12/05/24 12:00 Vancomycin 750 Mg/Ns 250 Ml IVPB Q24H [facility] Piperacillin/Tazobactam/Dextrose 3.375 gm in 50 mls @ 100 mls/hr 12/04/24 18:00 12/05/24 06:10 Zosyn 3.375 Gm/Ns 50 Ml IVPB 100 mls/hr Q6H TYREL Administration Levothyroxine Sodium 50 mcg 12/05/24 06:30 12/05/24 06:14 Levothyroxine Sodium 50 Mcg Tablet PO 50 mcg DAILY@0630 [facility] Administration Povidone Iodine 1 ml 12/04/24 17:00 12/04/24 17:23 Povidone-Iodine 10% Solution 118 Ml Bottle TOPICAL 1 ml BID [facility] Administration Psyllium Hydrophilic Mucilloid 1 packet 12/04/24 22:30 12/04/24 23:24 Psyllium Powder Packet PO Not Given EVENING [facility] Rosuvastatin Calcium 20 mg 12/05/24 09:00 Rosuvastatin 10 Mg Tablet PO DAILY [facility] Labs Labs: Laboratory Results - last 24 hr 12/04/24 12/04/24 12/05/24 10:40 10:41 05:50 WBC 6.0 5.3 RBC 3.85 L 3.79 L Hgb 11.4 L 11.2 L Hct 36.0 L 36.2 L MCV 93.5 95.5 MCH 29.6 29.6 MCHC 31.7 L 30.9 L RDW 13.2 13.1 Plt Count 225 211 MPV 10.8 H 11.1 H Immature Gran % (Auto) 0.2 0.6 H Neut % (Auto) 62.9 58.3 Lymph % (Auto) 28.1 32.0 [place] % (Auto) 8.0 7.4 Eos % (Auto) 0.5 1.1 Baso % (Auto) 0.3 0.6 Lymph # (Auto) 1.68 1.69 [place] # (Auto) 0.5 0.4 Eos # (Auto) 0.0 0.1 Baso # (Auto) 0.0 0.0 Abs Immat Gran (auto) 0.01 0.03 Absolute Neuts (auto) 3.8 3.1 Absolute Nucleated RBC 0.000 0.000 Nucleated RBC % 0.0 0.0 Sodium 139 137 Potassium 3.9 3.9 Chloride 107 105 Carbon Dioxide 27 28 Anion Gap 5 4 BUN 11 11 Creatinine 0.71 0.63 L Estim Creat Clear Calc 44 50 Estimated GFR > 60 > 60 Glucose 91 77 Lactic Acid 0.6 L Calcium 8.8 8.5 Hospitalist MIPS Advance Care Plan I have confirmed that the patient's Advanced Care Plan is present, code status is documented, or surrogate decision maker is listed in patient medical record.: Yes Medication Reconciliation I have utilized all available resources to obtain, update and review the patients current medications (includes all prescriptions, OTC, herbals, cannabis, and nutritional supplements).: Yes
[2024-12-05] MEDS: VANCOMYCIN 750 MG/NS 250 ML 750 MG/250 ML BAG 250 MG IVPB (12:12)
[2024-12-05 12:54] LABS: MRSA (PCR) NOT DETECTED (NOT DETECTE)
[2024-12-05 14:00] VITALS: BP 130/57; PULSE 62; RESP 18; TEMP 36.7; O2SAT 95
[2024-12-05] MEDS: ACETAMINOPHEN 325 MG TABLET 650 MG PO ×2 (15:15→21:59)
[2024-12-05] MEDS: PSYLLIUM POWDER PACKET 1 PACKET PO (17:17)
[2024-12-05 20:00] VITALS: PULSE 55; RESP 16; O2SAT 97
[2024-12-05 22:15] VITALS: BP 148/66; PULSE 55; RESP 16; TEMP 36.5; O2SAT 97
[2024-12-06] MEDS: PIPERACILLN/TAZ 3.375GM/NS50ML 3.375 GM/50 ML BAG IVPB ×2 (00:34→06:30)
[2024-12-06 05:56] VITALS: BP 139/60; PULSE 50; RESP 16; TEMP 36.4; O2SAT 100
[2024-12-06] MEDS: LEVOTHYROXINE SODIUM 50 MCG TABLET PO (06:30)
[2024-12-06 07:01] LABS: Hematocrit 38.7 % (37.0-47.0); Hemoglobin 12.2 g/dL (12.0-15.0); Mean Corpuscular HGB Conc 31.5 g/dl (32-36); Mean Corpuscular Hemoglobin 29.5 pg (26-34); Mean Corpuscular Volume 93.5 fl (80-100); Mean Platelet Volume 10.8 fl (7.4-10.4); Platelet Count Result 250 k/mm3 (150-375); Red Blood Count 4.14 M/mm3 (4.2-5.4); Red Cell Distribution Width 12.9 % (11.5-14.5); White Blood Count 5.1 K/mm3 (4.5-10.0)
[2024-12-06 07:18] LABS: Alanine Aminotransferase 13 U/L (6-35); Albumin Level 4.1 g/dL (3.5-5.1); Alkaline Phosphatase 53 U/L (38-126); Anion Gap 6 mmol/L (4-12); Aspartate Amino Transferase 29 U/L (14-36); Bilirubin,Total 0.4 mg/dL (0.2-1.3); Blood Urea Nitrogen 13 mg/dL (7-17); Calcium 9.2 mg/dL (8.4-10.2); Carbon Dioxide 29 mmol/L (22-30); Chloride 104 mmol/L (98-107); Estimated CRCL calculation 46 ml/min; Estimated Glomerular Filt Rate > 60; Glucose 87 mg/dL (65-110); Potassium 4.1 mmol/L (3.4-5.0); Sodium 139 mmol/L (137-145); Total Protein 7.1 g/dL (6.3-8.2)
[2024-12-06] MEDS: ASPIRIN 81 MG CHEWABLE TABLET PO (08:42)
[2024-12-06] MEDS: DOCUSATE SODIUM 100 MG CAPSULE PO (08:42)
[2024-12-06] MEDS: ROSUVASTATIN 10 MG TABLET 20 MG PO (08:42)
[2024-12-06] MEDS: POVIDONE-IODINE 10% SOLUTION 118 ML BOTTLE TOPICAL (08:49)
[2024-12-06] MEDS: BACITRACIN OINTMENT 15 GM TUBE 1 APPLIC TOPICAL (08:49)
[2024-12-06] MEDS: HYDROGEN PEROXIDE 3% TOPICAL SOLUTION 118 ML BOTTLE IRRIGATION (08:50)
[2024-12-06] MEDS: AMOXICILLIN/CLAVULANATE K 875-125 MG TAB 1 TABLET PO (10:39)
[2024-12-06] MEDS: LINEZOLID 600 MG TABLET PO (10:39)
[2024-12-06 14:00] VITALS: BP 120/56; PULSE 75; RESP 18; TEMP 36.1; O2SAT 97
--- NOTE | 2024-12-06 15:26 | P.DS_ITS ---
DS: Admitting Diagnosis Discharge Date 12/2024 Admitting Diagnosis Dog bite DS: Discharge Diagnosis Discharge Diagnosis (1) Infected dog bite of finger: Qualifiers: Encounter type: initial encounter Qualified Code(s): S61.259A - Open bite of unspecified finger without damage to nail, initial encounter; L08.9 - Local infection of the skin and subcutaneous tissue, unspecified; W54.0XXA - Bitten by dog, initial encounter Code(s): S61.259A - Open bite of unspecified finger without damage to nail, initial encounter; L08.9 - Local infection of the skin and subcutaneous tissue, unspecified; W54.0XXA - Bitten by dog, initial encounter Status: Acute Assessment and Plan: Plastics consulted with recommendations for IV antibiotics, BID soaks of finger in warm water with mixture of betadine and peroxide for 5-10 minutes, bacitracin, band-aid and finger splint, and follow-up outpatient in office S/p IV Zosyn and vancomycin Started on amoxicillin/clavulanic acid and linezolid (2) Avulsion fracture: Code(s): T14.8XXA - Other injury of unspecified body region, initial encounter Status: Acute Assessment and Plan: Fracture and open wound from dog bite Orthopedic consulted and reported to follow plastics recommendation Splint (3) Hypothyroidism: Code(s): E03.9 - Hypothyroidism, unspecified Status: Acute Assessment and Plan: Continue home medication (4) Dyslipidemia: Code(s): E78.5 - Hyperlipidemia, unspecified Status: Acute Plan Continue home medication DS: Summary Hospital Course Hospital Course: 79-year-old female past medical history of diverticulosis, hypothyroidism, hypertension hyperlipidemia presents the hospital with a diet by after failing oral antibiotics. Patient states that she was bitten on Monday her left index finger. On Monday she presented to her primary care provider and was prescribed antibiotics and taking them as directed. However today is looking worse and more painful so she presented to the ER. In the ED patient had anemia of 11.4, BMP was within normal limits. Blood cu ltures are pending. X-ray of the finger showed Age-indeterminate avulsion fracture left second distal phalanx involving the DIP joint. And plastics was consulted. Plastics recommended: 1) agree with ER plan to admit to medicine for broad spectrum IV abx. follow cultures and transition to oral per primary 2) BID soaks of finger in warm water with mixture of betadine and peroxide for 5-10 minutes 3) elevation 4) wound care with bacitracin, band-aid and finger splint 5) reconsult as indicated and patient has f/u appointment in plastics office this coming monday Patient was initially on vancomycin and Zosyn and de-escalated the antibiotic to Augmentin and linezolid. Patient nasal MRSA is negative. On the day of discharge, the patient was seen and examined. Vital signs were stable. Physical exam were stable and labs were reviewed at length. Discharge instructions, medications, and follow-up appointments were discussed with the patient at length and all day questions were answered. ER warnings were given. Status at Discharge Cognitive/behavioral status at discharge: Stable Time Spent with Patient Time attestation: Total time spent providing and/or coordinating discharge services: 45 minutes Exam Narrative: General: well appearing, appears stated age. HEENT: normocephalic, atraumatic. Mucous membranes moist. EOMI, PERRLA, bilateral sclera anicteric, no conjunctival injection. Neck supple without JVD, lymphadenopathy, or bruit. Respiratory: clear to ascultation bilaterally. No rales/rhonic/wheezes. Cardiovascular: Regular rate and rhythm, normal S1-S2 upon ascultation. No murmurs, rubs, or clicks. PMI is nondisplaced, capillary refill less than 3 second. Abdomen: Soft, round, no pulsatile masses, nondistended and nontender. No rebound, no guarding. No CVA tenderness, no hepatosplenomegaly. Bowel sounds present to all four quadrants. No high pitch or tinkling sounds, resonant to percussion. Extremities: No cyanosis, clubbing, or edema present. Pulses are palpable 2/2. Active ROM to all four extremities. Erythema to left 2nd digit. Neuro: Alert and orientated x 4. PERRLA. Cranial nerves 2-12 intact without focal deficit. Skin: Warm, dry, and intact, without rash, erythema, or lesion. Psych: pleasant, cooperative, normal speech, normal affect, no hallucinations, no dysarthia DS: Data Data Completed and Pending Labs on day of discharge: Labs from last 24 hours 12/06/24 06:13 WBC 5.1 RBC 4.14 L Hgb 12.2 Hct 38.7 MCV 93.5 MCH 29.5 MCHC 31.5 L RDW 12.9 Plt Count 250 MPV 10.8 H Sodium 139 Potassium 4.1 Chloride 104 Carbon Dioxide 29 Anion Gap 6 BUN 13 Creatinine 0.70 Estim Creat Clear Calc 46 Estimated GFR > 60 Glucose 87 Calcium 9.2 Total Bilirubin 0.4 AST 29 ALT 13 Alkaline Phosphatase 53 Total Protein 7.1 Albumin 4.1 Preliminary micro results at discharge 12/04/24 10:40 Blood Culture - Preliminary Blood 12/04/24 10:40 Blood Culture - Preliminary Blood Discharge Plan Discharge Attending physician on discharge: Jose Alejandra Consulting providers: Faby Gamez Discharging Clinician: Jose Alejandra Anticipated Discharge Date/Time: 12/06/24 15:21 Patient Disposition: Home Activity: as tolerated Diet: regular Discharge Instructions: Please follow-up with the plastic surgeon and PCP In case of pain or swelling please return to ED BID soaks of finger in warm water with mixture of betadine and peroxide for 5-10 minutes elevation of hand Wound care with bacitracin, band-aid and finger splint ED precautions given Patient Instructions: Antibiotic Form Patient Language: Albanian Stand Alone Forms: General Discharge Information Follow-up/Referrals: Faby Gamez MD [Physician] - Elissa Edmonds PA-C [Primary Care Provider] - Discharge Medications: New linezolid 600 mg Tablet 600 mg PO Q12HR Qty: 24 0RF Rx Instructions: Please complete the course on 12/17 Saccharomyces boulardii [Florastor] 250 mg capsule 250 mg PO BID Qty: 30 0RF bacitracin 500 unit/gram Ointment 1 applic topical Q12HR Qty: 30 0RF povidone-iodine [Betadine] 10 % Solution 1 ml topical BID Qty: 100 0RF Continued biotin 10 mg tablet 10 mg PO DAILY levothyroxine 50 mcg Tablet 50 mcg PO DAILY Vitamin D3 100 mcg (4,000 unit) Capsule 100 mcg PO DAILY aspirin 81 mg Tablet,Chewable 81 mg PO DAILY rosuvastatin 10 mg tablet 20 mg PO DAILY Metamucil 3.4 gram/5.4 gram powder 1 tbsp PO DAILY Rx Instructions: mix into at least 8 oz of water or juice before administering amoxicillin-pot clavulanate 875-125 mg tablet 1 tablet PO BID Qty: 24 0RF Rx Instructions: Please complete the course on 12/17 cyanocobalamin (vitamin B-12) 500 mcg tablet, sublingual 500 mcg sublingual DAILY Date of admission: 12/05/24 14:57 Primary Care Provider: Elissa Edmonds I. Admitting Provider: Jose Alejandra Attending physician on admission: Jose Alejandra Condition: Stable
== END 2024-12-06 15:50 | disposition home or self-care (01) | DRG 605 ==
LOC: ANHED 13:41 → ANH3MEDSUR 15:28
PROVIDERS: Nurse Practitioner Gerontology; Admitting Provider General Practice; Emergency Provider Emergency Medicine; PCP Physician Assistant Medical; Visit Provider General Practice
DX: S61.251A Open bite of left index finger without damage to nail, initial encounter (principal); L02.512 Cutaneous abscess of left hand; L03.012 Cellulitis of left finger; W54.0XXA Bitten by dog, initial encounter; S62.631A Displaced fracture of distal phalanx of left index finger, initial encounter for closed fracture; D64.9 Anemia, unspecified; E53.8 Deficiency of other specified B group vitamins; E55.9 Vitamin D deficiency, unspecified; K57.90 Diverticulosis of intestine, part unspecified, without perforation or abscess without bleeding; E78.5 Hyperlipidemia, unspecified; I34.1 Nonrheumatic mitral (valve) prolapse; E03.9 Hypothyroidism, unspecified; Z79.51 Long term (current) use of inhaled steroids; Z79.82 Long term (current) use of aspirin; Z79.899 Other long term (current) drug therapy; Z90.710 Acquired absence of both cervix and uterus; Z98.890 Other specified postprocedural states
CPT/HCPCS: 26010; 36415; 80048; 80053; 83605; 85025; 85027; 87040; 87641; 96365; 96366; 96367; 96372; 96375; 99285; A9270; G0378; J1650; J2543; J3370

== ENCOUNTER 2024-12-23 08:42 | Outpatient (CLI) | payer MEDICARE, SELFPAY ==
--- NOTE | ~2024-12-23 | XR_ITS ---
XR finger 2nd LT min 2V Ordering provider: Faby Gamez MD History: . T14.8XXA - Other injury of unspecified body region, initi... . Comparison: December 02, 2024 FINDINGS: BONES: Small bony fragments are seen near to the distal interphalangeal joints of the left second fin jeremy. Lucency is seen at the base of the distal phalanx suggestive of a fracture. JOINT SPACES: Narrowing of the distal interphalangeal joint of the second finger. SOFT TISSUES: Minimal swelling in the area of the middle phalanx IMPRESSION: Small chip fractures opposite the distal interphalangeal joint. Fracture of the base of the distal phalanx involving the proximal metaphysis. 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 Reviewed, dictated and finalized at location A.
== END 2024-12-23 08:43 | disposition home or self-care (01) ==
PROVIDERS: PCP Physician Assistant Medical; Visit Provider Plastic Surgery
DX: S62.631A Displaced fracture of distal phalanx of left index finger, initial encounter for closed fracture (principal); M19.042 Primary osteoarthritis, left hand; X58.XXXA Exposure to other specified factors, initial encounter
CPT/HCPCS: 73140